=== PATIENT | female | born 1940 | race Caucasian/White ===

== ENCOUNTER 2022-01-04 16:53 | Emergency (ER) | payer MEDICARE, SELFPAY ==
--- NOTE | ~2022-01-04 | CT_ITS ---
Indication: Trauma EXAMINATION: CT chest, CT thoracic spine, CT lumbar sacral spine. Axial imaging with coronal and sagittal reformatted images. Radiation dose is 251 [address] examination was performed using dose optimization techniques as appropriate, variously including the following: *Automated exposure control *Adjustment of mA and/or kV according to patient size (this includes techniques or standardized protocols for targeted exams where dose is matched to indication/reason for exam; i.e. extremities or head) *Use of iterative reconstruction technique. CT chest; The thoracic inlet is felt to be within normal limits. No free fluid in the mediastinum is noted. Coronary calcifications are seen. Partially visualized upper abdominal structures are grossly unremarkable. Centrally there is no bulky mediastinal adenopathy. The hilar regions are not pathologically enlarged. Lung luke. Right lung; There is no pneumothorax or effusion. There is COPD here. 5 mm nodule on image 14. Granuloma calcified on image 27 Reticular change in the lungs may be chronic. 6 mm nodule on image 41 Other calcified granulomas are seen here. Right lung; There is a density in the right upper lung medially. There is some central linear calcification but the majority of this density is soft tissue. This is measuring 2.4 x 1.4 cm. There is a 9 mm nodule left base on image 40. 8 mm nodule centrally on image 32 7 mm nodule on image 20. 7 mm nodule on image 23. Review of the bone windows does not demonstrate an acute fracture. CT of the thoracic spine. Motion limits evaluation at the cervical thoracic junction. No evidence of an acute compression injury. Degenerative changes are noted here. No fracture line is seen. Lumbar sacral spine; Degenerative changes. No acute fracture. CT/CT thoracic spine wo IV con IMPRESSION: This exam is abnormal. There are numerous areas of lung nodularity which are described above. There is underlying COPD. PET/CT is recommended at this time to further evaluate. Underlying malignancy needs to be considered. There is no acute fracture seen in the thoracic or lumbar spine. There is no pneumothorax or effusion in the lungs. No free fluid is seen here.
--- NOTE | ~2022-01-04 | XR_ITS ---
EXAMINATION: XR BILATERAL HIPS WITH AP PELVIS CLINICAL INFORMATION: Bilateral hip pain COMPARISON: None TECHNIQUE: AP view of the pelvis and 2 views of each hip FINDINGS: The pelvic image shows probable degeneration in the lower lumbar sacral spine. The SI joints are grossly patent. Some mild degeneration. Detailed views of the right hip 2 views show the femoral head contour to be smooth. There is some mild axial joint space loss. Mild degenerative change along the greater trochanter. There is no acute fracture or dislocation. Detailed imaging 2 views of the left hip show some axial and inferior joint space loss. The femoral head contour however again remains smooth. No acute finding. Degenerative change along the greater trochanter. Some degeneration at the level the pubis XR/XR hips AMANDA min 3V IMPRESSION: No acute bony finding. Some degenerative changes are noted here. The femoral head contours however remain smooth.
--- NOTE | ~2022-01-04 | CT_ITS ---
EXAMINATION: CT HEAD WITHOUT CONTRAST CT CERVICAL SPINE WITHOUT CONTRAST CLINICAL INFORMATION: Fall. Head strike. COMPARISON: None TECHNIQUE: Contiguous axial imaging was performed from the skull base to vertex without intravenous administration of contrast. Contiguous axial CT images of the cervical spine were obtained without contrast. Sagittal and coronal reformats were provided and reviewed. This CT examination was performed using dose optimization techniques as appropriate, variously including the following: *Automated exposure control. *Adjustment of mA and/or kV according to patient size (this includes techniques or standardized protocols for targeted exams where dose is matched to indication/reason for exam; i.e. extremities or head). *Use of iterative reconstruction technique. DLP: 1044 mGy-cm FINDINGS: HEAD: There is no evidence of acute intracranial hemorrhage or territorial infarction. No abnormal mass effect or midline shift is seen. [id number] matter differentiation is well preserved. No extra-axial fluid collections are identified. Mild prominence of the ventricles and sulci consistent mild atrophy. Multiple chronic lacunar infarcts. Soft tissue swelling overlying the posterior right parieto-occipital calvarium. Intact calvarium. The mastoid air cells and visualized portions of the paranasal sinuses are well aerated. CERVICAL SPINE: Normal vertebral body alignment. The normal cervical lordosis is maintained. No acute fracture or subluxation. No loss of vertebral body height. Mild multilevel loss of intervertebral disc height with endplate osteophytes, most prominent at C4-C5. Mild multilevel bilateral facet arthropathy. No lytic or blastic osseous lesion. Unremarkable prevertebral soft tissues. No abnormal soft tissue mass or fluid collection. Thyroid within normal limits. Post surgical change consistent with lobectomy within the left upper lobe. Emphysematous changes within the visualized lung apices. No significant central canal or neural foraminal stenosis. CT/CT cervical spine wo IV con IMPRESSION: HEAD: No acute intracranial hemorrhage or mass effect. Soft tissue swelling overlying the right parieto-occipital calvarium consistent with hematoma. CERVICAL SPINE: No acute fracture or subluxation. Mild multilevel degenerative disc disease and facet arthropathy, most prominent at C4-C5.
--- NOTE | 2022-01-04 17:03 | ED.FALL ---
HPI - Fall General Chief Complaint: Fall Stated Complaint: mechanical fall Time Seen by Provider: 01/04/22 17:03 Source: patient and EMS Mode of arrival: EMS Limitations: no limitations History of Present Illness HPI Narrative: 81-year-old female presents via EMS for evaluation for a mechanical trip and fall. Patient was trying to step up wild getting her mail, fell backwards and hit her head on the cement. She is complaining of a headache, has a laceration to the occiput, is in his C-collar and is complaining of bilateral hip pain, back pain, and chest wall pain. Patient wears O2 for COPD, and has known lung nodules. Patient does not report prodromal events prior to the fall, denies chest pressure, palpitations, abdominal pain, abdominal distention, changes in vision, dizziness, weakness, nausea or vomiting. MD complaint: fall Onset (ago): hour(s) (Within the hour of arrival) Fall from: standing Fall witnessed: yes, by family Place fall occurred: home Loss of consciousness: none Prolonged down time: no Symptoms prior to fall: none Context: tripped/slipped Location of injury: head, chest, back and pelvis Location of injury - extremities: right: elbow Severity: moderate Severity scale (1-10): 7 Quality: aching Associated symptoms (after fall): headache, neck pain and chest pain Related Data Allergies Allergy/AdvReac Type Severity Reaction Status Date / Time No Known Allergies Allergy Verified 01/04/22 17:06 Review of Systems Review of Systems: Constitutional: No Fever, No Chills ENT/Mouth: No Ear Pain, No Hoarseness, No sore throat Eyes: No Eye Pain, No Swelling, No Redness, No Foreign Body Cardiovascular: No Chest Pain, No SOB Respiratory: No Cough, No Dyspnea Gastrointestinal: No Nausea, No Vomiting, No Diarrhea, No abdominal Pain Genitourinary: No Dysuria, No Hematuria Musculoskeletal: positive chest wall, hip, elbow and back pain, No Myalgias, No Joint Swelling Skin: Positive abrasion to the occiput, No Skin lacerations, No rash Neuro: No Weakness, No Numbness, No Paresthesias, No Loss of Consciousness, No Dizziness, positive Headache Psych: No Anxiety/Panic, No Depression Heme/Lymph: no easy bruising, no Lymphadenopathy Endocrine: No Polyuria, No Polydipsia Yes all other systems are reviewed and are negative [facility] Past Medical History Attestation statement: The following information was validated with the patient. Source: old records reviewed Social History Social History Alcohol intake: never Patient Tobacco Use Status: Never used Tobacco Use of substances other than those prescribed or required for medical reasons: No Advance Directives: No Advance Directives Information Provided: No Physical Exam Vital Signs: Vital Signs: Last Vital Signs Temp 98.4 F 01/04/22 17:11 Pulse 67 01/04/22 17:11 Resp 18 01/04/22 17:11 BP 162/52 H 01/04/22 17:11 Pulse Ox 99 01/04/22 17:11 O2 Del Method 01/04/22 17:11 Oxygen Flow Rate 2 01/04/22 17:11 BMI result Body Mass Index 21.4 Appearance: Alert. Oriented X3. No acute distress. Eyes: Pupils equal, round and reactive to light. EOMI. No pain on extraocular movements. ENT: Pharynx normal. Moist mucous membranes. Tympanic membranes intact. Neck: Normal inspection. Neck supple. No vertebral tenderness or step-offs. No nuchal rigidity. CVS: Normal heart rate and rhythm. Pulses normal. Respiratory: No respiratory distress. Breath sounds normal. Abdomen: Soft and nontender. Skin: Abrasion to the occiput. Skin warm and dry. Normal skin color. Normal skin turgor. Extremities: No lower extremity edema. Tenderness to bilateral hips, no internal or external rotation or shortening of the lower extremities. Chest wall tenderness to palpation greater on the left than the right. Moves all extremities against resistance. Strength 5/5. Gait not assessed for safety. Neuro: No motor deficit. No sensory deficit. Cranial nerves 2-12 intact Course Course Course Narrative: 81-year-old female presents via EMS for evaluation of injury sustained from a fall. Patient has an abrasion to the occiput, does not require yun or further care be sites cleaning with normal saline and hydrogen peroxide. Physical exam indicates chest wall tenderness to palpation, bilateral hip tenderness to palpation without crepitus, full range of motion to all extremities. No vertebral tenderness or step-offs. Will continue with physical exam status post CT scan of head cervical spine, chest, lumbar thoracic and hip x-ray. 19:30 CT scan negative for acute findings requiring emergent intervention. Redemonstrated nodules, no fractures dislocations. X-rays of hip and pelvis are negative. 19:45 patient has full range of motion to all extremities, does have some tenderness to the elbow but there is no swelling, bruising, and has equal grasp to bilateral extremities with 5/5 strength. Brisk capillary refill equal pulses. Full range of motion to the neck. At this time, will have patient follow-up with primary care physician for post concussive protocol. Patient and patient family verbalized understanding of and agrees plan of care discharge home. Verbalized understanding of signs and symptoms indicating need for emergent intervention. MDM - Fall Differential Diagnosis Differential diagnosis: Likely dislocation, fracture, compression fracture and concussion without loss of consciousness Medical Records Attestation: I reviewed the patient's medical records. Imaging Data CT head neck: Attestation: I personally reviewed and interpreted this imaging study as follows: Radiologist's impression: HEAD: There is no evidence of acute intracranial hemorrhage or territorial infarction. No abnormal mass effect or midline shift is seen. Dlnj-[id number]-[id number] matter differentiation is well preserved. No extra-axial fluid collections are identified. Mild prominence of the ventricles and sulci consistent mild atrophy. Multiple chronic lacunar infarcts. Soft tissue swelling overlying the posterior right parieto-occipital calvarium. Intact calvarium. The mastoid air cells and visualized portions of the paranasal sinuses are well aerated. CERVICAL SPINE: Normal vertebral body alignment. The normal cervical lordosis is maintained. No acute fracture or subluxation. No loss of vertebral body height. Mild multilevel loss of intervertebral disc height with endplate osteophytes, most prominent at C4-C5. Mild multilevel bilateral facet arthropathy. No lytic or blastic osseous lesion. Unremarkable prevertebral soft tissues. No abnormal soft tissue mass or fluid collection. Thyroid within normal limits. Post surgical change consistent with lobectomy within the left upper lobe. Emphysematous changes within the visualized lung apices. No significant central canal or neural foraminal stenosis. ? CT/CT cervical spine wo IV con IMPRESSION: HEAD: No acute intracranial hemorrhage or mass effect. Soft tissue swelling overlying the right parieto-occipital calvarium consistent with hematoma. ? CERVICAL SPINE: No acute fracture or subluxation. Mild multilevel degenerative disc disease and facet arthropathy, most prominent at C4-C5. CT chest abdomen pelvis thoracic and lumbar: Attestation: I personally reviewed and interpreted this imaging study as follows: Radiologist's impression: EXAMINATION: CT chest, CT thoracic spine, CT lumbar sacral spine. Axial imaging with coronal and sagittal reformatted images. Radiation dose is 251 [address] examination was performed using dose optimization techniques as appropriate, variously including the following: *Automated exposure control *Adjustment of mA and/or kV according to patient size (this includes techniques or standardized protocols for targeted exams where dose is matched to indication/reason for exam; i.e. extremities or head) *Use of iterative reconstruction technique. CT chest; The thoracic inlet is felt to be within normal limits. No free fluid in the mediastinum is noted. Coronary calcifications are seen. Partially visualized upper abdominal structures are grossly unremarkable. Centrally there is no bulky mediastinal adenopathy. The hilar regions are not pathologically enlarged. Lung luke. Right lung; There is no pneumothorax or effusion. There is COPD here. 5 mm nodule on image 14. Granuloma calcified on image 27 Reticular change in the lungs may be chronic. 6 mm nodule on image 41 Other calcified granulomas are seen here. Right lung; There is a density in the right upper lung medially. There is some central linear calcification but the majority of this density is soft tissue. This is measuring 2.4 x 1.4 cm. There is a 9 mm nodule left base on image 40. 8 mm nodule centrally on image 32 7 mm nodule on image 20. 7 mm nodule on image 23. Review of the bone windows does not demonstrate an acute fracture. CT of the thoracic spine. Motion limits evaluation at the cervical thoracic junction. No evidence of an acute compression injury. Degenerative changes are noted here. No fracture line is seen. Lumbar sacral spine; Degenerative changes. No acute fracture. CT/CT chest wo IV con IMPRESSION: ? This exam is abnormal. There are numerous areas of lung nodularity which are described above. There is underlying COPD. PET/CT is recommended at this time to further evaluate. Underlying malignancy needs to be considered. ? There is no acute fracture seen in the thoracic or lumbar spine. ? There is no pneumothorax or effusion in the lungs. No free fluid is seen here. Hip x-ray: Attestation: I personally reviewed and interpreted this imaging study as follows: Radiologist's impression: EXAMINATION: XR BILATERAL HIPS WITH AP PELVIS CLINICAL INFORMATION: Bilateral hip pain COMPARISON: None TECHNIQUE: AP view of the pelvis and 2 views of each hip FINDINGS: The pelvic image shows probable degeneration in the lower lumbar sacral spine. The SI joints are grossly patent. Some mild degeneration. Detailed views of the right hip 2 views show the femoral head contour to be smooth. There is some mild axial joint space loss. Mild degenerative change along the greater trochanter. There is no acute fracture or dislocation. Detailed imaging 2 views of the left hip show some axial and inferior joint space loss. The femoral head contour however again remains smooth. No acute finding. Degenerative change along the greater trochanter. Some degeneration at the level the pubis XR/XR hips AMANDA min 3V IMPRESSION: No acute bony finding. Some degenerative changes are noted here. The femoral head contours however remain smooth. Discharge Plan Discharge Clinical Impression: Concussion without loss of consciousness, Lung nodules, Laceration of scalp Patient Disposition: Home, Self-Care Instructions: Laceration (ED), Concussion (ED), Post Concussion Syndrome (ED), Staple Care (ED) Additional Instructions: You were evaluated for injury sustained from fall. Please follow-up with primary care physician for post concussive syndrome. We updated her Tdap vaccine for an abrasion to the back of her head. CT scan head, cervical spine, thoracic, lumbar spine, chest, and x-rays of the hip and pelvis are negative for acute findings requiring emergent intervention, it does show some lung nodules that are already being followed by Pulmonary. Thank you for choosing this emergency department for evaluation. Please follow-up with primary care physician as needed. Return to the emergency department for any new, concerning, or worsening symptoms. Referrals: Vance Preston MD [Primary Care Provider] - 1 week (Fall, concussion syndrome) Interventions: ED Discharge Assessment Last Done: 01/04/22 20:22 Discharge Date/Time: 01/04/22 20:24
[2022-01-04 17:11] VITALS: BP 132/58; BP 162/52; PULSE 67; PULSE 70; RESP 18; TEMP 36.9; O2SAT 93; O2SAT 99; BMI 21.4
[2022-01-04] MEDS: Diphth,Pertus(ACell),Tet Adult 0.5 ML SYRINGE IM (18:01)
--- OUTSIDE RECORDS SUMMARY | 2022-01-04 18:22 | XMS_ITS | Continuity of Care Document ---
:1940 Author Organization [facility] Address [address] [address]- Care Team Providers Name Role Phone Kary MCGINNIS, Vance Ny Primary Care Physician Encounter [facility] Date(s): 06/02/21 - 07/02/21 [facility] [address] [address]- Allergies, Adverse Reactions, Alerts Substance Reaction Severity Status thiazide diuretics hypokalemia Active angiotensin converting enzyme inhibitors angioedema Active Celexa rash Active Diltiazem Hydrochloride Novaplus Active Immunizations Given and Recorded Vaccine Date Status Refusal Reason influenza virus vaccine, inactivated 01/25/21 Given influenza virus vaccine, inactivated1 01/26/20 Given influenza virus vaccine, inactivated2 12/24/17 Recorded influenza virus vaccine, inactivated3 01/30/17 Recorded influenza virus vaccine, inactivated 01/07/16 Given influenza virus vaccine, inactivated4 12/24/14 Given influenza virus vaccine, inactivated 02/09/14 Given influenza virus vaccine, inactivated5 11/26/12 Given influenza virus vaccine, inactivated6 04/17/12 Given SARS-CoV-2 (COVID-19) mRNA BNT-162b2 vac 05/25/20 Given SARS-CoV-2 (COVID-19) mRNA BNT-162b2 vac 05/04/20 Given pneumococcal 13-valent vaccine 06/23/14 Given tetanus/diphtheria/pertussis, acel(Tdap) 04/24/13 Given Influenza Virus Vaccine (oldterm)7 12/13/10 Given FluLaval (oldterm) 01/25/10 Given Fluzone (oldterm) 04/02/09 Given Influenza Inactive (IM) (oldterm) 02/02/07 Given Influenza Inactive (IM) (oldterm) 04/13/06 Given Influenza Inactive (IM) (oldterm) 02/27/03 Given Pneumococcal Vaccine (oldterm) 12/21/06 Given tetanus-diphtheria toxoids (Td) 04/16/03 Given tetanus-diphtheria toxoids (Td) 07/26/93 Given 1Result Comment: High Dose Flu Vaccination given by Emma Garza [id number] History: [facility] [id number] Comment: [01/31/2017] stop n [id number] Note: [facility] [id number] Note: given at [facility] [id number] Note: 03-06 [facility] [id number] Note: [facility] Medications hydrOXYzine hydrochloride 25 mg oral tablet 1 tablet = 25 mg, By Mouth, Every 12 hours, PRN as needed for anxiety, # 20 tablet, 0 Refills, Acute07/04/21 8:00:00 EDT, 06/03/21 15:18:00 EST, [facility], Partial fill upon patient request if the prescription is for a schedule II opioi... Start Date: 06/03/21 Stop Date: 07/04/21 Status: Orderedlevothyroxine 0.088 mg oral tablet See Instructions, TAKE 1 TABLET BY MOUTH DAILY., # 30 tablet, 5 Refills, Maintenance, 06/02/21 12:31:00 EST, [facility], 162, cm, 05/23/21 15:21:00 EST, Height Start Date: 06/02/21 Status: Orderedmirtazapine 15 mg oral tablet 1 tablet = 15 mg, By Mouth, Daily at bedtime, # 90 tablet, 1 Refills, Maintenance, 05/23/21 16:07:00EST, Tablet, [facility], D/C RX 7.5, 162, cm, 05/23/21 15:21:00 EST, Height Start Date: 05/23/21 Status: OrderedNorvasc 2.5 mg oral tablet 2.5 mg, 1, tablet, By Mouth, Daily, # 90 tablet, Refills 3, Tot. Refills 3, Maintenance, 12/07/20 11:19:00 EDT, Route to Pharmacy Electronically, [facility], 162, cm, 11/04/20 14:18:00EDT, Height Start Date: 12/07/20 Status: OrderedO2 Rx O2 Rx, See Instructions, # 1 each, Refills 11, Tot. Refills 11, Maintenance, 2lpm continuous oxygen concentrator for nocturnal 02 SP02 88% length of need lifetime 99 months Dx, 06/04/20 9:05:00 EST, Supply Start Date: 06/04/20 Status: OrderedOvernight oximetry Overnight oximetry, See Instructions, # 1 each, Refills 0, Tot. Refills 0, Maintenance, Overnight Oximetry on room air dx COPD J44.9, 02/17/20 13:55:00 EST, Supply, 162, cm, 02/09/20 16:08:00 EST, Height Start Date: 02/17/20 Status: OrderedProAir HFA 90 mcg/inh inhalation aerosol with adapter 1, puffs, Inhalation, Every 6 hours, PRN, # 3 each, Refills 3, Tot. Refills 3, Maintenance, 10/08/2110:51:00 EDT, Aerosol, Route to Pharmacy Electronically, [id number], [facility], 162, cm, 02/09/20 16:08:00 EST... Start Date: 10/08/20 Stop Date: 10/03/21 Status: OrderedSpiriva HandiHaler 18 mcg inhalation capsule 1 capsule = 18 mcg, Inhalation, Daily, # 30 capsule, 2 Refills, Maintenance, 03/02/21 16:23:00 EST, [facility], Partial fill upon patient request, 162, cm, 11/04/20 14:18:00 EDT, Height Start Date: 03/02/21 Status: Orderedspironolactone 25 mg oral tablet 1, tablet, By Mouth, Daily, # 90 tablet, Refills 3, Tot. Refills 0, Maintenance, 10/08/20 16:11:00 EDT, Route to Pharmacy Electronically, [facility], 162, cm, 02/09/20 16:08:00 EST, Height Start Date: 10/08/20 Status: OrderedWixela Inhub 500 mcg-50 mcg inhalation powder 1 inhalation, Inhalation, 2 times a day, rinse mouth and throat after use, # 3 each, 3 Refills, Maintenance, 06/02/21 12:57:00 EST, Powder, [facility], Partial fill upon patient request if the prescription is for a schedule II opioid drug... 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) History of diverticulitis(Confirmed) Active History of basal cell carcinoma of Active skin(Confirmed) Hormone replacement therapy Active (HRT)(Confirmed) Hypertension(Confirmed) Active Hypothyroidism(Confirmed) Active Idiopathic peripheral Active neuropathy(Confirmed)1 Impaired fasting glucose(Confirmed) Active 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 Social History Social History Type Response Smoking Status Current every day smoker entered on: 09/14/17 Sex Female
--- OUTSIDE RECORDS SUMMARY | 2022-01-04 18:22 | XMS_ITS | Continuity of Care Document ---
:1940 Author Organization [facility] Address [address] [place] [address]- Care Team Providers Name Role Phone Kary MCGINNIS, Vance Ny Primary Care Physician Encounter [facility] Date(s): 08/29/21 - 09/28/21 [facility] [address] [place] [address]- Allergies, Adverse Reactions, Alerts Substance Reaction Severity Status thiazide diuretics hypokalemia Active angiotensin converting enzyme inhibitors angioedema Active Celexa rash Active Diltiazem Hydrochloride Novaplus Active Immunizations Given and Recorded Vaccine Date Status Refusal Reason SARS-CoV-2 mRNA ([id number]) vax 07/06/21 Recorde d influenza virus vaccine, inactivated 01/25/21 Given influenza virus vaccine, inactivated1 01/26/20 Given influenza virus vaccine, inactivated 01/30/18 Recorded influenza virus vaccine, inactivated2 12/24/17 Recorded influenza virus vaccine, inactivated3 01/30/17 Recorded influenza virus vaccine, inactivated 01/07/16 Given influenza virus vaccine, inactivated4 12/24/14 Given influenza virus vaccine, inactivated 02/09/14 Given influenza virus vaccine, inactivated5 11/26/12 Given influenza virus vaccine, inactivated6 04/17/12 Given SARS-CoV-2 (COVID-19) mRNA BNT-162b2 vac 12/17/20 Recorde d SARS-CoV-2 (COVID-19) mRNA BNT-162b2 vac 05/25/20 Given [...] Dose Flu Vaccination given by Emma Garza [id number] History: [facility] [id number] Comment: [01/31/2017] stop n [id number] Note: [facility] [id number] Note: given at [facility] [id number] Note: 12- [facility] [id number] Note: [facility] at [facility] Medications famotidine 20 mg oral tablet 20 mg, 1, tablet, By Mouth, Daily at bedtime, # 90 tablet, Refills 1, Tot. Refills 1, Maintenance, 09/16/21 13:17:00 EDT, Route to Pharmacy Electronically, [facility], Partial fill upon patient request if the prescription is for a schedul... Start Date: 09/16/21 Status: Orderedlevothyroxine 75 mcg (0.075 mg) oral tablet 1 tablet = 75 mcg, By Mouth, Daily, DOSAGE DECREASE, # 30 tablet, 6 Refills, Maintenance, 08/09/21 11:44:00 EDT, Tablet, [facility], Partial fill upon patient request if the prescription is for a schedule II opioid drug., 162, cm, ... Start Date: 08/09/21 Status: Orderedmirtazapine 15 mg oral tablet 1 tablet = 15 mg, By Mouth, Daily at bedtime, # 90 tablet, 1 Refills, Maintenance, 05/23/21 16:07:00EST, Tablet, [facility], D/C RX 7.5, 162, cm, 05/23/21 15:21:00 EST, Height Start Date: 05/23/21 Status: OrderedO2 Rx O2 Rx, See Instructions, [...] 1, puffs, Inhalation, Every 6 hours, PRN, for 90 days, # 3 each, Refills 3, Tot. Refills 3, Hard Stop 10/03/21 11:51:00 EDT, 10/08/20 11:51:00 EDT, Aerosol, Route to Pharmacy Electronically, [id number], [facility]... Start Date: 10/08/20 Stop Date: 10/03/21 Status: OrderedProAir HFA 90 mcg/inh inhalation aerosol with adapter 1, puffs, Inhalation, Every 6 hours, PRN, # 6.7 Gm, Refills 11, Tot. Refills 11, Maintenance, 10/03/21 11:51:00 EDT, Aerosol, Route to Pharmacy Electronically, [id number], [facility], 162, cm, 08/19/21 8:00:00 ED... 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 Social History Social History Type Response Smoking Status Current every day smoker entered on: 09/14/17 Sex Female
--- OUTSIDE RECORDS SUMMARY | 2022-01-04 18:22 | XMS_ITS | Continuity of Care Document ---
:1940 Author Organization [facility] Address [address] [place] [address]- Care Team Providers Name Role Phone Umberto MCGINNIS, Sam Sam Primary Care Physician [facility]counter [facility] Date(s): 02/09/20 - 03/10/20 [facility] [address] [place] [address]- Attending Physician: Adenike Barber Admitting Physician: Adenike Barber Referring Physician: AdmtrAdenike Allergies, Adverse Reactions, Alerts Substance Reaction Severity Status thiazide diuretics hypokalemia Active angiotensin converting enzyme inhibitors angioedema Active Diltiazem Hydrochloride Novaplus Active Celexa rash Active Immunizations Given and Recorded Vaccine Date Status Refusal Reason influenza virus vaccine, inactivated1 01/26/20 Given influenza virus vaccine, inactivated2 12/24/17 Recorded influenza virus vaccine, inactivated3 01/30/17 Recorded influenza virus vaccine, inactivated 01/07/16 Given influenza virus vaccine, inactivated4 12/24/14 Given influenza virus vaccine, inactivated 02/09/14 Given influenza virus vaccine, inactivated5 11/26/12 Given influenza virus vaccine, inactivated6 04/17/12 Given pneumococcal 13-valent vaccine 06/23/14 Given tetanus/diphtheria/pertussis, [...] Dose Flu Vaccination given by Emma Garza [id number] History: stop and [id number] Comment: [01/31/2017] stop n ehza6Uidkx Note: Stop and Gfwt8Fbovi Note: given at stop and fmkv4Cbypt Note: 03-06 [facility] [id number] Note: given at [facility] and [facility] Medications Advair Diskus 500 mcg-50 mcg inhalation powder 1, puffs, Inhalation, 2 times a day, rinse mouth and throat after use NAME BRAND MEDICALLY NECESSARYNO SUBSTITUTION, # 3 each, Refills 1, Tot. Refills 1, Maintenance, 09/02/20 11:41:00 EDT, Powder, Route to Pharmacy Electronically, [id number]... Start Date: 09/02/20 Stop Date: 03/01/21 Status: OrderedAdvair Diskus 500 mcg-50 mcg inhalation powder 1, puffs, Inhalation, 2 times a day, rinse mouth and throat after use NAME BRAND MEDICALLY NECESSARYNO SUBSTITUTION for 90 days, # 3 each, Refills 1, Tot. Refills 1, Hard Stop 09/02/20 11:41:00 EDT, 03/06/20 11:41:00 EST, Powder, Route to Pharmacy E... Start Date: 03/06/20 Stop Date: 09/02/20 Status: Orderedmirtazapine 15 mg oral tablet 1 tablet = 15 mg, By Mouth, Daily at bedtime, # 90 tablet, 3 Refills, Maintenance, 09/08/19 17:14:00EDT, Tablet, [facility], D/C RX 7.5, 162, cm, 04/01/19 10:25:00 EST, Height Start Date: 09/08/19 Status: OrderedOvernight oximetry Overnight oximetry, See Instructions, [...] Refills 3, Tot. Refills 3, Hard Stop 10/08/20 11:51:00 EDT, 10/14/19 11:51:00 EDT, Aerosol, Route to Pharmacy Electronically, [id number], [facility]... Start Date: 10/14/19 Stop Date: 10/08/20 Status: OrderedProAir HFA 90 mcg/inh inhalation aerosol with adapter 1, puffs, Inhalation, Every 6 hours, PRN, # 3 each, Refills 3, Tot. Refills 3, Maintenance, 10/08/2110:51:00 EDT, Aerosol, Route to Pharmacy Electronically, [id number], [facility], 162, cm, 02/09/20 16:08:00 EST... Start Date: 10/08/20 Stop Date: 10/03/21 Status: OrderedSpiriva HandiHaler 18 mcg inhalation capsule 1 capsule = 18 mcg, Inhalation, Daily, # 30 capsule, 11 Refills, Maintenance, 02/09/20 16:51:00 EST,[facility], Partial fill upon patient request, 162, cm, 02/09/20 16:08:00 EST, Height Start Date: 02/09/20 Status: Orderedspironolactone 25 mg oral tablet 25 mg, 1, tablet, By Mouth, Daily, # 90 tablet, Refills 3, Tot. Refills 3, Maintenance, 09/08/19 10:26:00 EDT, Route to Pharmacy Electronically, [facility], 162, cm, 04/01/19 10:25:00 EST, Height Start Date: 09/08/19 Status: OrderedSynthroid 0.088 mg oral tablet 1 tablet = 0.088 mg, By Mouth, Daily, # 90 tablet, 3 Refills, Maintenance, 09/08/19 10:26:00 EDT, Tablet, [facility], 162, cm, 04/01/19 10:25:00 EST, Height Start Date: 09/08/19 Status: Ordered Problem List Condition Effective Dates Status Health Status Informant Acute gastritis(Confirmed) Active Acute UTI(Confirmed) Active Adjustment reaction with anxiety and Active depression(Confirmed) Chronic insomnia(Confirmed) Active Chronic obstructive pulmonary disease Active (COPD)(Confirmed) Cigarette smoker(Confirmed) Active 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) History of diverticulitis(Confirmed) Active History of basal cell carcinoma of Active skin(Confirmed) Hormone replacement therapy Active (HRT)(Confirmed) Hypertension(Confirmed) Active Hypothyroidism(Confirmed) Active Idiopathic peripheral Active neuropathy(Confirmed)1 Impaired fasting glucose(Confirmed) Active 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 Social History Social History Type Response Smoking Status Current every day smoker entered on: 09/14/17 Sex Female
--- OUTSIDE RECORDS SUMMARY | 2022-01-04 18:22 | XMS_ITS | Continuity of Care Document ---
:1940 Author Organization [facility] Address [address] [place] [address]- Care Team Providers Name Role Phone Sam Shipman MD Primary Care Physician Encounter [facility] [place] Date(s): 06/06/19 - 06/16/19 [facility] [address] [place] [address]- [facility] Attending Physician: Adenike Barber Admitting Physician: Adenike Barber Referring Physician: Adenike Barber Allergies, Adverse Reactions, Alerts Substance Reaction Severity Status thiazide diuretics hypokalemia Active angiotensin converting enzyme inhibitors angioedema Active Celexa rash Active Diltiazem Hydrochloride Novaplus Active Immunizations Given and Recorded Vaccine Date Status Refusal Reason influenza virus vaccine, inactivated1 12/24/17 Recorded influenza virus vaccine, inactivated2 01/30/17 Recorded influenza virus vaccine, inactivated 01/07/16 Given influenza virus vaccine, inactivated3 12/24/14 Given influenza virus vaccine, inactivated 02/09/14 Given influenza virus vaccine, inactivated4 11/26/12 Given influenza virus vaccine, inactivated5 04/17/12 Given pneumococcal 13-valent vaccine 06/23/14 Given tetanus/diphtheria/pertussis, acel(Tdap) 04/24/13 Given Influenza Virus Vaccine (oldterm)6 12/13/10 Given FluLaval (oldterm) 01/25/10 Given Fluzone (oldterm) 04/02/09 Given Influenza Inactive (IM) (oldterm) 02/02/07 Given Influenza Inactive (IM) (oldterm) 04/13/06 Given Influenza Inactive (IM) (oldterm) 02/27/03 Given Pneumococcal Vaccine (oldterm) 12/21/06 Given tetanus-diphtheria toxoids (Td) 04/16/03 Given tetanus-diphtheria toxoids (Td) 07/26/93 Given 1Location History: stop and nckh1Ljetss Comment: [01/31/2017] stop n [id number] Note: Stop and Ieaj0Xgrbs Note: given at stop and mppp5Ihygp Note: - [facility] [id number] Note: given at [facility] and shop Medications Advair Diskus 500 mcg-50 mcg inhalation powder 1, puffs, Inhalation, 2 times a day, rinse mouth and throat after use NAME BRAND MEDICALLY NECESSARYNO SUBSTITUTION for 90 days, # 180 each, Refills 3, Tot. Refills 3, Hard Stop 09/08/19 11:41:31 EDT,09/13/18 11:41:31 EDT, Powder, Route to Pharmacy... Start Date: 09/13/18 Stop Date: 09/08/19 Status: OrderedAdvair Diskus 500 mcg-50 mcg inhalation powder 1, puffs, Inhalation, 2 times a day, rinse mouth and throat after use NAME BRAND MEDICALLY NECESSARYNO SUBSTITUTION, # 3 each, Refills 1, Tot. Refills 1, Maintenance, 09/08/19 11:41:00 EDT, Powder, Route to Pharmacy Electronically, [id number]... Start Date: 09/08/19 Stop Date: 03/06/20 Status: OrderedNorvasc 2.5 mg oral tablet 2.5 mg, 1, tablet, By Mouth, Daily, # 90 tablet, Refills 3, Tot. Refills 3, Maintenance, 12/18/18 11:02:55 EDT, Route to Pharmacy Electronically, [id number], [facility] Start Date: 12/18/18 Status: OrderedProAir HFA 90 mcg/inh inhalation aerosol with adapter 1, puffs, Inhalation, Every 6 hours, PRN, # 3 each, Refills 3, Tot. Refills 3, Maintenance, 09/18/1816:50:27 EDT, Aerosol, Route to Pharmacy Electronically, [id number], [facility] Start Date: 09/18/17 Stop Date: 09/13/18 Status: Orderedspironolactone 25 mg oral tablet 25 mg, 1, tablet, By Mouth, Daily, # 90 tablet, Refills 3, Tot. Refills 3, Maintenance, 08/15/18 13:52:58 EDT, Route to Pharmacy Electronically, [id number], [facility] Start Date: 08/15/18 Status: OrderedSynthroid 0.088 mg oral tablet 1 tablet = 0.088 mg, By Mouth, Daily, # 90 tablet, 3 Refills, Maintenance, 08/07/18 7:20:51 EDT, Tablet Start Date: 08/07/18 Status: Ordered Problem List Condition Effective Dates Status Health Status Informant Acute gastritis(Confirmed) Active Acute UTI(Confirmed) Active Adjustment reaction with anxiety and Active depression(Confirmed) Chronic obstructive pulmonary disease Active (COPD)(Confirmed) Cigarette [...] drinks/day(Confirmed) Daily alcohol consumption(Confirmed) Active 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 Social History Social History Type Response Smoking Status Current every day smoker entered on: 09/14/17 Sex Female
--- OUTSIDE RECORDS SUMMARY | 2022-01-04 18:22 | XMS_ITS | Continuity of Care Document ---
:1940 Author Organization [facility] Address [address] [place] [address]- Care Team Providers Name Role Phone Kary MCGINNIS, Vance Ny Primary Care Physician [facility]counter [facility] Date(s): 06/01/21 - 07/01/21 [facility] [address] [place] [address]- Allergies, Adverse Reactions, Alerts Substance Reaction Severity [...] Dose Flu Vaccination given by Emma Garza [id number] History: stop and cpay6Zsldkd Comment: [01/31/2017] stop n [id number] Note: Stop and Tkym2Zvfcv Note: given at stop and yjrl7Hpujg Note: 03-06 [facility] [id number] Note: given at [facility] and shop Medications [...] 10/08/2110:51:00 EDT, Aerosol, Route to Pharmacy Electronically, [id number], [facility], 162, cm, 02/09/20 16:08:00 EST... 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 Social History Social History Type Response Smoking Status Current every day smoker entered on: 09/14/17 Sex Female
--- OUTSIDE RECORDS SUMMARY | 2022-01-04 18:22 | XMS_ITS | Continuity of Care Document ---
:[address] [facility] Address [address] [place] [address]- Care Team Providers Name Role Phone Kary MCGINNIS, Vance Ny Primary Care Physician [facility] Date(s): 05/23/21 - 05/30/21 [facility] [address] [place] [address]- Attending Physician: Not on Staff, Attending MD Allergies, Adverse Reactions, Alerts Substance Reaction Severity [...] Dose Flu Vaccination given by Emma Garza [id number] History: stop and oycu9Tuqilj Comment: [01/31/2017] stop n roqj6Oinhg Note: Stop and Cuuy8Olcyn Note: given at stop and owfy0Kigqw Note: 03-06 [facility] [id number] Note: given at stop and shop Medications Advair Diskus 500 mcg-50 mcg inhalation powder 1, puffs, Inhalation, 2 times a day, rinse mouth and throat after use NAME BRAND MEDICALLY NECESSARYNO SUBSTITUTION for 90 days, # 3 each, Refills 1, Tot. Refills 1, Hard Stop 08/28/21 11:41:00 EDT, 03/01/21 11:41:00 EST, Powder, Route to Pharmacy E... Start Date: 03/01/21 Stop Date: 08/28/21 Status: Orderedmirtazapine 15 mg oral tablet 1 [...] 10/08/2110:51:00 EDT, Aerosol, Route to Pharmacy Electronically, [id number], [facility], 162, cm, 02/09/20 16:08:00 EST... Start Date: 10/08/20 Stop Date: 10/03/21 Status: OrderedSpiriva HandiHaler 18 mcg inhalation capsule 1 capsule = 18 mcg, Inhalation, Daily, # 30 capsule, 2 Refills, Maintenance, 03/02/21 16:23:00 EST, [facility], Partial fill upon patient request, 162, cm, 11/04/20 14:18:00 EDT, Height Start Date: 03/02/21 Status: Orderedspironolactone 25 mg oral tablet 1, tablet, By Mouth, Daily, # 90 tablet, Refills 3, Tot. 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 Vital Signs Most recent to oldest [Reference Range]: 1 Height 162 cm (05/23/21 3:21 PM) Weight 56.8 kg (05/23/21 3:21 PM) Body Mass Index [18.5-24.99] 21.64 (05/23/21 3:21 PM) Weight Obtained Via Patient/family stated (05/23/21 3:21 PM) Social History Social History Type Response Smoking Status Current every day smoker entered on: 09/14/17 Sex Female
--- OUTSIDE RECORDS SUMMARY | 2022-01-04 18:22 | XMS_ITS | Continuity of Care Document ---
:1940 Author Organization [facility] Address [address] [place] [address]- Care Team Providers Name Role Phone Umberto MCGINNIS, Sam Sam Primary Care Physician [facility] Date(s): 06/04/20 - 07/04/20 [facility] [address] [address]- Attending Physician: Adenike Barber Admitting Physician: Adenike Barber Referring Physician: AdmtrAdenike Allergies, Adverse Reactions, Alerts Substance Reaction Severity Status thiazide diuretics hypokalemia Active angiotensin converting enzyme inhibitors angioedema Active Celexa rash Active Diltiazem Hydrochloride Novaplus Active Immunizations Given and Recorded Vaccine Date Status Refusal Reason SARS-CoV-2 (COVID-19) mRNA BNT-162b2 vac 05/25/20 Given SARS-CoV-2 (COVID-19) mRNA BNT-162b2 vac 05/04/20 Given influenza virus vaccine, inactivated1 01/26/20 Given [...] Given FluLaval (oldterm) 01/25/10 Given Fluzone (oldterm) 1/8/10 Given Influenza Inactive (IM) (oldterm) 02/02/07 Given Influenza Inactive (IM) (oldterm) 04/13/06 Given Influenza Inactive (IM) (oldterm) 02/27/03 Given Pneumococcal Vaccine (oldterm) 12/21/06 Given tetanus-diphtheria toxoids (Td) 04/16/03 Given tetanus-diphtheria toxoids (Td) 07/26/93 Given 1Result Comment: High Dose Flu Vaccination given by Emma Garza [id number] History: stop and xfvl4Yemvjh Comment: [01/31/2017] stop n nfwd2Ptrwk Note: Stop and Hvtu0Mavwy Note: given at stop and miqt3Mzlkg Note: 03-[facility] VEWWPVR6Fqukl Note: given at stop and shop Medications Advair Diskus 500 mcg-50 mcg inhalation powder 1, puffs, Inhalation, 2 times a day, rinse mouth and throat after use NAME BRAND MEDICALLY NECESSARYNO SUBSTITUTION, # 3 each, Refills 1, Tot. Refills 1, Maintenance, 09/02/20 11:41:00 EDT, Powder, Route to Pharmacy Electronically, [id number]... Start Date: 09/02/20 Stop Date: 03/01/21 Status: [...] 10:25:00 EST, Height Start Date: 09/08/19 Status: OrderedO2 Rx O2 Rx, See Instructions, [...] 11:51:00 EDT, Aerosol, Route to Pharmacy Electronically, [id number], [facility]... Start Date: 10/14/19 Stop Date: 10/08/20 Status: OrderedProAir HFA 90 mcg/inh inhalation aerosol with adapter 1, puffs, Inhalation, Every 6 hours, PRN, # 3 each, Refills 3, Tot. 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 Social History Social History Type Response Smoking Status Current every day smoker entered on: 09/14/17 Sex Female
--- OUTSIDE RECORDS SUMMARY | 2022-01-04 18:22 | XMS_ITS | Continuity of Care Document ---
:1940 Author Organization [facility] Address [address] [place] [address]- Care Team Providers Name Role Phone Sam Shipman MD Primary Care Physician [facility]counter [facility] Date(s): 05/14/20 - 05/21/[address] [address]- Attending Physician: Anita Bhatti Admitting Physician: Anita Bhatti Referring Physician: Sam Shipman MD Allergies, Adverse Reactions, Alerts Substance Reaction Severity Status thiazide diuretics hypokalemia Active angiotensin converting enzyme inhibitors angioedema Active Celexa rash Active Diltiazem Hydrochloride Novaplus Active Immunizations Given and Recorded Vaccine Date Status Refusal Reason SARS-CoV-2 (COVID-19) mRNA BNT-162b2 vac 05/04/20 Given [...] Dose Flu Vaccination given by Emma Garza [id number] History: stop and rvlu4Pyblbh Comment: [01/31/2017] stop n ksul6Rnmuv Note: Stop and Fbzt7Pmxff Note: given at stop and kzgx8Kblxl Note: 03-06 [facility] [id number] Note: given at stop and shop Medications Advair Diskus 500 mcg-50 mcg inhalation powder 1, puffs, Inhalation, 2 times a day, rinse mouth and throat after use NAME BRAND MEDICALLY NECESSARYNO SUBSTITUTION, # 3 each, Refills 1, Tot. Refills 1, Maintenance, 09/02/20 11:41:00 EDT, Powder, Route to Pharmacy Electronically, [id number]... Start Date: 09/02/20 Stop Date: 03/01/21 Status: [...] 11:51:00 EDT, Aerosol, Route to Pharmacy Electronically, [id number], [facility]... Start Date: 10/14/19 Stop Date: 10/08/20 Status: OrderedProAir HFA 90 mcg/inh inhalation aerosol with adapter 1, puffs, Inhalation, Every 6 hours, PRN, # 3 each, Refills 3, Tot. 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 Social History Social History Type Response Smoking Status Current every day smoker entered on: 09/14/17 Sex Female
--- OUTSIDE RECORDS SUMMARY | 2022-01-04 18:22 | XMS_ITS | Continuity of Care Document ---
:1940 Author Organization [facility] Address [address] [address]- Care Team Providers Name Role Phone Umberto MCGINNIS, Sam Sam Primary Care Physician [facility] Date(s): 09/13/20 - 10/13/20 [facility] [address] [address]- Allergies, Adverse Reactions, Alerts Substance Reaction Severity [...] Dose Flu Vaccination given by Emma Garza [id number] History: stop and rkuy4Hhpxni Comment: [01/31/2017] stop n qdrw8Gwyfh Note: Stop and Gsha1Hhhrp Note: given at stop and wqbw4Wqija Note: 03-06 [facility] [id number] Note: given at stop and shop Medications Advair Diskus 500 mcg-50 mcg inhalation powder 1, puffs, Inhalation, 2 times a day, rinse mouth and throat after use NAME BRAND MEDICALLY NECESSARYNO SUBSTITUTION for 90 days, # 3 each, Refills 1, Tot. Refills 1, Hard Stop 03/01/21 11:41:00 EST, 09/02/20 11:41:00 EDT, Powder, Route to Pharmacy E... Start Date: 09/02/20 Stop Date: 03/01/21 Status: OrderedAdvair Diskus 500 mcg-50 mcg inhalation powder 1, puffs, Inhalation, 2 times a day, rinse mouth and throat after use NAME BRAND MEDICALLY NECESSARYNO SUBSTITUTION, # 3 each, Refills 1, Tot. Refills 1, Maintenance, 03/01/21 11:41:00 EST, Powder, Route to Pharmacy Electronically, [id number]... Start Date: 03/01/21 Stop Date: 08/28/21 Status: [...] 10/08/2110:51:00 EDT, Aerosol, Route to Pharmacy Electronically, [id number], [facility], 162, cm, 02/09/20 16:08:00 EST... Start Date: 10/08/20 Stop Date: 10/03/21 Status: OrderedSpiriva HandiHaler 18 mcg inhalation capsule 1 capsule = 18 mcg, Inhalation, Daily, # 30 capsule, 11 Refills, Maintenance, 02/09/20 16:51:00 EST,[facility], Partial fill upon patient request, 162, cm, 02/09/20 16:08:00 EST, Height Start Date: 02/09/20 Status: Orderedspironolactone 25 mg oral tablet 1, tablet, By Mouth, Daily, # 90 tablet, Refills 3, Tot. Refills 0, Maintenance, 10/08/20 16:11:00 EDT, Route to Pharmacy Electronically, [email or web address], 162, cm, 02/09/20 16:08:00 EST, Height Start Date: 10/08/20 Status: OrderedSynthroid 0.088 mg oral tablet 1 tablet = 0.088 mg, By Mouth, Daily, # 90 tablet, 3 Refills, Maintenance, 09/08/19 10:26:00 EDT, Tablet, [facility], 162, cm, 04/01/19 10:25:00 EST, [...] drinks/day(Confirmed) Daily alcohol consumption(Confirmed) Active Old inferior [place] [...]
--- OUTSIDE RECORDS SUMMARY | 2022-01-04 18:22 | XMS_ITS | Continuity of Care Document ---
:1940 Author Organization [facility] Address [address] [place] [address]- Care Team Providers Name Role Phone Kary MCGINNIS, Vance Ny Primary Care Physician Encounter [facility] [place] Date(s): 05/13/21 - 06/12/21 [facility] [address] [address]- Attending Physician: Adenike Barber Admitting Physician: Adenike [...] Dose Flu Vaccination given by Emma Garza [id number] History: stop and aqwn3Xfltcx Comment: [01/31/2017] stop n grzl8Tvuvq Note: Stop and Zask8Uwmwj Note: given at stop and moen4Iyikd Note: 03-06 [facility] UGZETQI2Sdefn Note: given at stop and shop Medications [...] 12/07/20 11:19:00 EDT, Route to Pharmacy Electronically, [email or web address], 162, cm, 11/04/20 14:18:00EDT, Height [...] 10/08/2110:51:00 EDT, Aerosol, Route to Pharmacy Electronically, [id number], [facility], 162, cm, 02/09/20 16:08:00 EST... Start Date: 10/08/20 Stop Date: 10/03/21 Status: OrderedSpiriva HandiHaler 18 mcg inhalation capsule 1 capsule = 18 mcg, Inhalation, Daily, # 30 capsule, 2 Refills, Maintenance, 03/02/21 16:23:00 EST, [email or web address], Partial fill upon patient request, 162, cm, 11/04/20 14:18:00 EDT, Height Start Date: 03/02/21 Status: Orderedspironolactone 25 mg oral tablet 1, tablet, By Mouth, Daily, # 90 tablet, Refills 3, Tot. 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 Social History Social History Type Response Smoking Status Current every day smoker entered on: 09/14/17 Sex Female
--- OUTSIDE RECORDS SUMMARY | 2022-01-04 18:22 | XMS_ITS | Continuity of Care Document ---
:1940 Author Organization [facility] Address [address] [place] [address]- Care Team Providers Name Role Phone Umberto MCGINNIS, Sam Sam Primary Care Physician Encounter [facility] Date(s): 01/25/21 - 02/01/21 [facility] [address] [place] [address]- Attending Physician: Vance Preston MD Allergies, Adverse Reactions, Alerts Substance Reaction [...] Dose Flu Vaccination given by Emma Garza [id number] History: stop and ixmd6Gldfjm Comment: [01/31/2017] stop n idyy1Gtsls Note: Stop and Zbec4Ecqvo Note: given at stop and cyew8Xbonn Note: 03-06 [facility] ASWAVWC4Dxbpu Note: given at stop and shop Medications [...] 11:41:00 EST, Powder, Route to Pharmacy Electronically, [id number]... Start Date: 03/01/21 Stop Date: 08/28/21 Status: Orderedmirtazapine 15 mg oral tablet 1 tablet = 15 mg, By Mouth, Daily at bedtime, # 90 tablet, 3 Refills, Maintenance, 09/08/19 17:14:00EDT, Tablet, [facility], D/C RX 7.5, 162, cm, 04/01/19 10:25:00 EST, Height Start Date: 09/08/19 Status: OrderedNorvasc 2.5 mg oral tablet 2.5 mg, 1, tablet, By Mouth, Daily, # 90 tablet, Refills 3, Tot. Refills 3, Maintenance, 12/07/20 11:19:00 EDT, Route to Pharmacy Electronically, [facility], 162, cm, 11/04/20 14:18:00EDT, Height [...] 10/08/2110:51:00 EDT, Aerosol, Route to Pharmacy Electronically, [id number], [facility], 162, cm, 02/09/20 16:08:00 EST... 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 Social History Social History Type Response Smoking Status Current every day smoker entered on: 09/14/17 Sex Female
--- OUTSIDE RECORDS SUMMARY | 2022-01-04 18:22 | XMS_ITS | Continuity of Care Document ---
:1940 Author Organization [facility] Address [address] [address]- Care Team Providers Name Role Phone Umberto MCGINNIS, Sam Sam Primary Care Physician Encounter [facility] Date(s): 02/12/20 - 03/13/20 [facility] [address] [place] [id number] Allergies, Adverse Reactions, Alerts Substance Reaction Severity [...] Dose Flu Vaccination given by Emma Garza [id number] History: stop and qaeg2Xhqtmk Comment: [01/31/2017] stop n ahyv8Gzjuw Note: Stop and Pyof8Txqag Note: given at stop and wscs6Smhdk Note: 12- [facility] ONIRPPE2Lkewc Note: given at stop and shop Medications Advair Diskus 500 mcg-50 mcg inhalation powder 1, puffs, Inhalation, 2 times a day, rinse mouth and throat after use NAME BRAND MEDICALLY NECESSARYNO SUBSTITUTION, # 3 each, Refills 1, Tot. Refills 1, Maintenance, 09/02/20 11:41:00 EDT, Powder, Route to Pharmacy Electronically, [id number]... Start Date: 09/02/20 Stop Date: 03/01/21 Status: [...] 11:51:00 EDT, Aerosol, Route to Pharmacy Electronically, [id number], [facility]... Start Date: 10/14/19 Stop Date: 10/08/20 Status: OrderedProAir HFA 90 mcg/inh inhalation aerosol with adapter 1, puffs, Inhalation, Every 6 hours, PRN, # 3 each, Refills 3, Tot. Refills 3, Maintenance, 10/08/2110:51:00 EDT, Aerosol, Route to Pharmacy Electronically, [id number], [facility], 162, cm, 02/09/20 16:08:00 EST... Start Date: 10/08/20 Stop Date: 10/03/21 Status: OrderedSpiriva HandiHaler 18 mcg inhalation capsule 1 capsule = 18 mcg, Inhalation, Daily, # 30 capsule, 11 Refills, Maintenance, 02/09/20 16:51:00 EST,[facility], Partial fill upon patient request, 162, cm, 02/09/20 16:08:00 EST, Height Start Date: 02/09/20 Status: Orderedspironolactone 25 mg oral tablet 25 mg, 1, tablet, By Mouth, Daily, # 90 tablet, Refills 3, Tot. 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 Social History Social History Type Response Smoking Status Current every day smoker entered on: 09/14/17 Sex Female
--- OUTSIDE RECORDS SUMMARY | 2022-01-04 18:22 | XMS_ITS | Continuity of Care Document ---
:1940 Author Organization [facility] Address [address] [place] [address]- Care Team Providers Name Role Phone Umberto MCGINNIS, Sam Sam Primary Care Physician Encounter [facility] Date(s): 01/24/21 - 02/23/[address] [address]- [place] Allergies, Adverse Reactions, Alerts Substance Reaction Severity [...] Dose Flu Vaccination given by Emma Garza [id number] History: stop and alkh4Iuoqjs Comment: [01/31/2017] stop n sopu4Kvlia Note: Stop and Ejvt2Voldr Note: given at stop and rilm3Bfonr Note: 03-06 [facility] CECYUWR7Zlthv Note: given at stop and shop Medications [...] 11:41:00 EST, Powder, Route to Pharmacy Electronically, [id number]... Start Date: 03/01/21 Stop Date: 08/28/21 Status: [...] 12/07/20 11:19:00 EDT, Route to Pharmacy Electronically, [facility], 162, cm, 11/04/20 14:18:00EDT, Height [...] 10/08/2110:51:00 EDT, Aerosol, Route to Pharmacy Electronically, [id number], [facility], 162, cm, 02/09/20 16:08:00 EST... 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 Social History Social History Type Response Smoking Status Current every day smoker entered on: 09/14/17 Sex Female
--- OUTSIDE RECORDS SUMMARY | 2022-01-04 18:23 | XMS_ITS | Continuity of Care Document ---
:1940 Author Organization [facility] Address [address] [place] [address]- Care Team Providers Name Role Phone Sam Shipman MD Primary Care Physician Encounter [facility] Date(s): 03/11/21 - 04/10/21 [facility] [address] [place] [address]- Allergies, Adverse Reactions, Alerts Substance Reaction Severity [...] Dose Flu Vaccination given by Emma Garza [id number] History: stop and vpdn6Fwjikw Comment: [01/31/2017] stop n adop6Nbwib Note: Stop and Nssw9Zbuuj Note: given at stop and awmx3Cyrtm Note: 03-06 [facility] IPNAACW7Dluvi Note: given at stop and shop Medications Advair Diskus 500 mcg-50 mcg inhalation powder 1, puffs, Inhalation, 2 times a day, rinse mouth and throat after use NAME BRAND MEDICALLY NECESSARYNO SUBSTITUTION, # 3 each, Refills 0, Tot. Refills 0, Maintenance, 08/28/21 11:41:00 EDT, Powder, Route to Pharmacy Electronically, [id number]... Start Date: 08/28/21 Stop Date: 11/26/21 Status: OrderedAdvair Diskus 500 mcg-50 mcg inhalation [...] 10/08/2110:51:00 EDT, Aerosol, Route to Pharmacy Electronically, [id number], [facility], 162, cm, 02/09/20 16:08:00 EST... 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 Social History Social History Type Response Smoking Status Current every day smoker entered on: 09/14/17 Sex Female
--- OUTSIDE RECORDS SUMMARY | 2022-01-04 18:23 | XMS_ITS | Continuity of Care Document ---
:1940 Author Organization [facility] Address [address] [place] [address]- Care Team Providers Name Role Phone Sam Shipman MD Primary Care Physician Encounter [facility] Date(s): 11/01/20 - 12/01/20 [facility] [address] [place] [address]- Allergies, Adverse Reactions, Alerts Substance Reaction Severity [...] Dose Flu Vaccination given by Emma Garza [id number] History: stop and sgpd0Qkjypo Comment: [01/31/2017] stop n wyag9Xkcza Note: Stop and Xhgq2Xllmt Note: given at stop and jybj8Mdjty Note: 03-06 [facility] EHDCYDI5Izxjx Note: given at stop and shop Medications [...] 11:41:00 EST, Powder, Route to Pharmacy Electronically, [id number]... Start Date: 03/01/21 Stop Date: 08/28/21 Status: [...] 10/08/2110:51:00 EDT, Aerosol, Route to Pharmacy Electronically, [id number], [facility], 162, cm, 02/09/20 16:08:00 EST... Start Date: 10/08/20 Stop Date: 10/03/21 Status: OrderedSpiriva HandiHaler 18 mcg inhalation capsule 1 capsule = 18 mcg, Inhalation, Daily, # 30 capsule, 11 Refills, Maintenance, 02/09/20 16:51:00 EST,[facility], Partial fill upon patient request, 162, cm, 02/09/20 16:08:00 EST, Height Start Date: 02/09/20 Status: Orderedspironolactone 25 mg oral tablet 1, tablet, By Mouth, Daily, # 90 tablet, Refills 3, Tot. 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 Social History Social History Type Response Smoking Status Current every day smoker entered on: 09/14/17 Sex Female
--- OUTSIDE RECORDS SUMMARY | 2022-01-04 18:23 | XMS_ITS | Continuity of Care Document ---
:1940 Author Organization [facility] Address [address] [place] [address]- Care Team Providers Name Role Phone Kiet BATRES, Keturah Cedeño Primary Care Physician Encounter [facility] [place] Date(s): 04/22/21 - 05/22/21 [facility] [address] [address]- Attending Physician: Adenike Barber Admitting Physician: Adenike [...] Dose Flu Vaccination given by Emma Garza JO9Nbqmpjhp History: stop and kdff2Oyfekx Comment: [01/31/2017] stop n mvpm9Rinff Note: Stop and Qxjm8Yhkdy Note: given at stop and gdhs2Rlmhi Note: 03-06 [facility] EFYIRNP7Suilg Note: given at stop and shop Medications Advair Diskus 500 mcg-50 mcg inhalation powder 1, puffs, Inhalation, 2 times a day, rinse mouth and throat after use NAME BRAND MEDICALLY NECESSARYNO SUBSTITUTION, # 3 each, Refills 0, Tot. Refills 0, Maintenance, 08/28/21 11:41:00 EDT, Powder, Route to Pharmacy Electronically, [id number]... Start Date: 08/28/21 Stop Date: 11/26/21 Status: [...] 12/07/20 11:19:00 EDT, Route to Pharmacy Electronically, [facility], 162, cm, 11/04/20 14:18:00EDT, Height [...] 10/08/2110:51:00 EDT, Aerosol, Route to Pharmacy Electronically, [id number], [facility], 162, cm, 02/09/20 16:08:00 EST... 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 Social History Social History Type Response Smoking Status Current every day smoker entered on: 09/14/17 Sex Female
--- OUTSIDE RECORDS SUMMARY | 2022-01-04 18:23 | XMS_ITS | Continuity of Care Document ---
:1940 Author Organization [facility] Address [address] [place] [address]- Care Team Providers Name Role Phone Sam Shipman MD Primary Care Physician [place] [facility] [place] 10/08/19 [facility] [address] [place] [address]- [facility] Attending Physician: Adenike Barber Admitting Physician: AdmAdenike love Referring Physician: AdmtrAdenike Allergies, Adverse Reactions, Alerts [...] (Td) [birth year]26[birth year] [address] History: stop and idsv3Prtqdi Comment: [01/31/2017] stop n ceca0Dtpsm Note: Stop and Xbpz2Dtskw Note: given at stop and luky8Vwiha Note: 03-06 [facility] EEAEVYN4Obhuw Note: given at stop and shop Medications Advair Diskus 500 mcg-50 mcg inhalation powder 1, puffs, Inhalation, 2 times a day, rinse mouth and throat after use NAME BRAND MEDICALLY NECESSARYNO SUBSTITUTION, # 3 each, Refills 1, Tot. Refills 1, Maintenance, 03/06/20 11:41:00 EST, Powder, Route to Pharmacy Electronically, [id number]... Start Date: 03/06/20 Stop Date: 09/02/20 Status: OrderedAdvair Diskus 500 mcg-50 mcg inhalation powder 1, puffs, Inhalation, 2 times a day, rinse mouth and throat after use NAME BRAND MEDICALLY NECESSARYNO SUBSTITUTION for 90 days, # 3 each, Refills 1, Tot. Refills 1, Hard Stop 03/06/20 11:41:00 EST, 09/08/19 11:41:00 EDT, Powder, Route to Pharmacy E... Start Date: 09/08/19 Stop Date: 03/06/20 Status: Orderedmirtazapine 15 mg oral tablet 1 [...] 12/18/18 11:02:55 EDT, Route to Pharmacy Electronically, [id number], [facility] Start Date: 12/18/18 Status: OrderedProAir HFA 90 mcg/inh inhalation aerosol with adapter 1, puffs, Inhalation, Every 6 hours, PRN, # 3 each, Refills 3, Tot. Refills 3, Maintenance, 09/18/1816:50:27 EDT, Aerosol, Route to Pharmacy Electronically, [id number], [facility] Start Date: 09/18/17 Stop Date: 09/13/18 Status: Orderedspironolactone 25 mg oral tablet 25 mg, 1, tablet, By Mouth, Daily, # 90 tablet, Refills 3, Tot. Refills 3, Maintenance, 09/08/19 10:26:00 EDT, Route to Pharmacy Electronically, [facility], 162, cm, 04/01/19 10:25:00 EST, Height Start Date: 09/08/19 Status: OrderedSynthroid 0.088 mg oral tablet 1 tablet = 0.088 mg, By Mouth, Daily, # 90 tablet, 3 Refills, Maintenance, 09/08/19 10:26:00 EDT, Tablet, 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 Procedures Procedure Date Related Diagnosis Body Site Status BMD 2012, osteoporosis Compl eted Social History Social History Type Response Smoking Status Current every day smoker entered on: 09/14/17 Sex Female
--- OUTSIDE RECORDS SUMMARY | 2022-01-04 18:23 | XMS_ITS | Continuity of Care Document ---
:1940 Author Organization [facility] Address [address] [address]- Care Team Providers Name Role Phone Sam Shipman MD Primary Care Physician [place] [facility] [place] 04[place]01/19 - 04/08/19 [facility] [address] [place] [address]- [place] Attending Physician: Anita Bhatti Admitting Physician: Anita [...] (Td) 07[birth year] [address] 1Location History: stop and xonu7Bsaxks Comment: [01/31/2017] stop n lizk7Srcxe Note: Stop and Pjbb6Honzj Note: given at stop and phhx8Hrybb Note: 12-12 [facility] ZKMJXVD0Wtsdc Note: given at stop and shop Medications Advair Diskus 500 mcg-50 mcg inhalation powder 1, puffs, Inhalation, 2 times a day, rinse mouth and throat after use NAME BRAND MEDICALLY NECESSARYNO SUBSTITUTION, # 180 each, Refills 3, Tot. Refills 3, Maintenance, 09/13/18 11:41:31 EDT, Powder, Route to Pharmacy Electronically, [id number]... Start Date: 09/13/18 Stop Date: 09/08/19 Status: OrderedNorvasc 2.5 mg oral tablet 2.5 mg, 1, tablet, By Mouth, Daily, # 90 tablet, Refills 3, Tot. Refills 3, Maintenance, 12/18/18 11:02:55 EDT, Route to Pharmacy Electronically, [id number], [facility] Start Date: 12/18/18 Status: OrderedProAir HFA 90 mcg/inh inhalation aerosol with adapter 1, puffs, Inhalation, Every 6 hours, PRN, # 3 each, Refills 3, Tot. Refills 3, Maintenance, 09/18/1816:50:27 EDT, Aerosol, Route to Pharmacy Electronically, [id number], [facility] Start Date: 09/18/17 Stop Date: 09/13/18 Status: Orderedspironolactone 25 mg oral tablet 25 mg, 1, tablet, By Mouth, Daily, # 90 tablet, Refills 3, Tot. 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 Vital Signs Most recent to oldest [Reference Range]: 1 Height 162 cm (04/01/19 10:25 AM) Weight 57.8 kg (04/01/19 10:25 AM) Oxygen Saturation [94-100 %] 94 % (04/01/19 10:25 AM) Pulse Rate [55-90 bpm] 62 bpm (04/01/19 10:25 AM) Body Mass Index [18.5-24.99] 22.02 (04/01/19 10:25 AM) Blood Pressure [90-138/55-84 mm Hg] 112/60 mm Hg (04/01/19 10:25 AM) Mode of Delivery (Oxygen) Room air (04/01/19 10:25 AM) Blood pressure sites Arm, left (04/01/19 10:25 AM) Weight Obtained Via Standing scale (04/01/19 10:25 AM) Social History Social History Type Response Smoking Status Current every day smoker entered on: 09/14/17 Sex Female
--- OUTSIDE RECORDS SUMMARY | 2022-01-04 18:23 | XMS_ITS | Continuity of Care Document ---
:1940 Author Organization [facility] Address [address] [place] [address]- Care Team Providers Name Role Phone Umberto MCGINNIS, Sam Sam Primary Care Physician [facility]counter [facility] Date(s): 01/25/21 - 02/24/21 [facility] [address] [place] [address]- Attending Physician: Adenike Barber Admitting Physician: Adenike [...] Dose Flu Vaccination given by Emma Garza [id number] History: stop and uhgw5Iqakpg Comment: [01/31/2017] stop n noey7Wxmmc Note: Stop and Emmc0Mdmpv Note: given at stop and iddg9Todqs Note: 03-06 [facility] UXFZEKA4Tlimm Note: given at stop and shop Medications [...] 11:41:00 EST, Powder, Route to Pharmacy Electronically, [id number]... Start Date: 03/01/21 Stop Date: 08/28/21 Status: [...] 12/07/20 11:19:00 EDT, Route to Pharmacy Electronically, [facility], 162, cm, 11/04/20 14:18:00EDT, Height [...] 10/08/2110:51:00 EDT, Aerosol, Route to Pharmacy Electronically, [id number], [facility], 162, cm, 02/09/20 16:08:00 EST... [...] 10/08/20 16:11:00 EDT, Route to Pharmacy Electronically, [facility], 162, cm, 02/09/20 [...] drinks/day(Confirmed) Daily alcohol consumption(Confirmed) Active Old inferior [place] [...]
--- OUTSIDE RECORDS SUMMARY | 2022-01-04 18:23 | XMS_ITS | Continuity of Care Document ---
:1940 Author Organization [facility] Address [address] [address]- Care Team Providers Name Role Phone Sam Shipman MD Primary Care Physician Encounter [facility] Date(s): 02/27/20 - 03/28/20 [facility] [address] [address]- Attending Physician: Adenike Barber Admitting Physician: AdmtrAdenike Referring Physician: [id number] Allergies, Adverse Reactions, Alerts Substance Reaction Severity [...] Dose Flu Vaccination given by Emma Garza [id number] History: stop and dorh9Tnjefi Comment: [01/31/2017] stop n dgti1Rlbfu Note: Stop and Fqkr2Avbjg Note: given at stop and gfnz7Pwhrr Note: 12- [facility] CVHRUEQ9Tfoaz Note: given at [facility] and shop Medications Advair Diskus 500 mcg-50 mcg inhalation powder 1, puffs, Inhalation, 2 times a day, rinse mouth and throat after use NAME BRAND MEDICALLY NECESSARYNO SUBSTITUTION, # 3 each, Refills 1, Tot. Refills 1, Maintenance, 09/02/20 11:41:00 EDT, Powder, Route to Pharmacy Electronically, [id number]... Start Date: 09/02/20 Stop Date: 03/01/21 Status: [...] 11:51:00 EDT, Aerosol, Route to Pharmacy Electronically, [id number], [facility]... Start Date: 10/14/19 Stop Date: 10/08/20 Status: OrderedProAir HFA 90 mcg/inh inhalation aerosol with adapter 1, puffs, Inhalation, Every 6 hours, PRN, # 3 each, Refills 3, Tot. Refills 3, Maintenance, 10/08/2110:51:00 EDT, Aerosol, Route to Pharmacy Electronically, [id number], [facility], 162, cm, 02/09/20 16:08:00 EST... Start Date: 10/08/20 Stop Date: 10/03/21 Status: OrderedSpiriva HandiHaler 18 mcg inhalation capsule 1 capsule = 18 mcg, Inhalation, Daily, # 30 capsule, 11 Refills, Maintenance, 02/09/20 16:51:00 EST,[facility], Partial fill upon patient request, 162, cm, 02/09/20 16:08:00 EST, Height Start Date: 02/09/20 Status: Orderedspironolactone 25 mg oral tablet 25 mg, 1, tablet, By Mouth, Daily, # 90 tablet, Refills 3, Tot. Refills 3, Maintenance, 09/08/19 10:26:00 EDT, Route to Pharmacy Electronically, [facility], 162, cm, 04/01/19 10:25:00 EST, Height Start Date: 09/08/19 Status: OrderedSynthroid 0.088 mg oral tablet 1 tablet = 0.088 mg, By Mouth, Daily, # 90 tablet, 3 Refills, Maintenance, 09/08/19 10:26:00 EDT, Tablet, [facility], 162, cm, 04/01/19 10:25:00 EST, [...]
--- OUTSIDE RECORDS SUMMARY | 2022-01-04 18:23 | XMS_ITS | Continuity of Care Document ---
:1940 Author Organization [facility] Address [address] [place] [address]- Care Team Providers Name Role Phone Kary MCGINNIS, Vance Ny Primary Care Physician [facility]counter [facility] Date(s): 06/02/21 - 07/02/21 [facility] [address] [place] [address]- Allergies, Adverse Reactions, Alerts Substance Reaction Severity [...] Dose Flu Vaccination given by Emma Garza [id number] History: stop and vduz4Vkatbk Comment: [01/31/2017] stop n gqyj1Twirg Note: Stop and Zzoy9Eqsss Note: given at stop and uqcf8Oojlq Note: 03-06 [facility] FSXQFNV1Pgpjq Note: given at stop and shop Medications [...] 10/08/2110:51:00 EDT, Aerosol, Route to Pharmacy Electronically, [id number], [facility], 162, cm, 02/09/20 16:08:00 EST... 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 Social History Social History Type Response Smoking Status Current every day smoker entered on: 09/14/17 Sex Female
--- OUTSIDE RECORDS SUMMARY | 2022-01-04 18:23 | XMS_ITS | Continuity of Care Document ---
:1940 Author Organization [facility] Address [address] [address]- Care Team Providers Name Role Phone Kary MCGINNIS, Vance Ny Primary Care Physician Encounter [facility] Date(s): 06/02/21 - 07/02/21 [facility] [address] [address]- Allergies, Adverse Reactions, Alerts Substance Reaction Severity [...] Dose Flu Vaccination given by Emma Garza [id number] History: stop and zuse1Npdydn Comment: [01/31/2017] stop n wtdq8Hffir Note: Stop and Jmsg8Qgkfy Note: given at stop and uvoj9Zfgni Note: 03-06 [facility] [id number] Note: given at stop and shop Medications [...] 10/08/2110:51:00 EDT, Aerosol, Route to Pharmacy Electronically, [id number], [facility], 162, cm, 02/09/20 16:08:00 EST... 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 Social History Social History Type Response Smoking Status Current every day smoker entered on: 09/14/17 Sex Female
--- OUTSIDE RECORDS SUMMARY | 2022-01-04 18:23 | XMS_ITS | Continuity of Care Document ---
:1940 Author Organization [facility] Address [address] [place] [address]- Care Team Providers Name Role Phone Sam Shipman MD Primary Care Physician Encounter [facility] Date(s): 10/14/19 - 11/13/19 [facility] [address] [place] [address]- [facility] Allergies, Adverse Reactions, Alerts Substance Reaction Severity [...] (Td) 07/26/93 Given 1Location History: stop and rglf0Tbrdiq Comment: [01/31/2017] stop n wali1Tlsqp Note: Stop and Sfyi1Nppvj Note: given at stop and ychw6Nvpee Note: 03-06 [facility] ZVJYDDO1Xyyqw Note: given at stop and shop Medications Advair Diskus 500 mcg-50 mcg inhalation powder 1, puffs, Inhalation, 2 times a day, rinse mouth and throat after use NAME BRAND MEDICALLY NECESSARYNO SUBSTITUTION, # 3 each, Refills 1, Tot. Refills 1, Maintenance, 03/06/20 11:41:00 EST, Powder, Route to Pharmacy Electronically, [id number]... Start Date: 03/06/20 Stop Date: 09/02/20 Status: [...] 12/18/18 11:02:55 EDT, Route to Pharmacy Electronically, [id number], [facility] Start Date: 12/18/18 Status: OrderedProAir HFA 90 mcg/inh inhalation aerosol with adapter 1, puffs, Inhalation, Every 6 hours, PRN, # 3 each, Refills 3, Tot. Refills 3, Maintenance, 10/13/2010:51:00 EDT, Aerosol, Route to Pharmacy Electronically, [id number], [facility], 162, cm, 04/01/19 10:25:00 EST... Start Date: 10/14/19 Stop Date: 10/08/20 Status: Orderedspironolactone 25 mg oral tablet 25 mg, 1, tablet, By Mouth, Daily, # 90 tablet, Refills 3, Tot. 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 Social History Social History Type Response Smoking Status Current every day smoker entered on: 09/14/17 Sex Female
--- OUTSIDE RECORDS SUMMARY | 2022-01-04 18:23 | XMS_ITS | Continuity of Care Document ---
:1940 Author Organization [facility] Address [address] [place] [address]- Care Team Providers Name Role Phone Sam Shipman MD Primary Care Physician Encounter [facility] Date(s): 09/08/19 - 09/15/19 [facility] [address] [place] [address] [facility] Encounter Diagnosis Hypothyroidism (Discharge Diagnosis) - 09/08/19 Chronic insomnia (Discharge Diagnosis) - 09/08/19 Hypertension (Discharge Diagnosis) - 09/08/19 Attending Physician: Sam Shipman MD Allergies, Adverse Reactions, [...] (Td) 07/26/93 Given 1Location History: stop and cfku4Nhptrj Comment: [01/31/2017] stop n vhvn8Ckauu Note: Stop and Hvch8Vrimu Note: given at stop and wlbu2Rtwhp Note: 03-06 [facility] STIILVA3Hngyt Note: given at stop and shop Medications Advair Diskus 500 mcg-50 mcg inhalation powder 1, puffs, Inhalation, 2 times a day, rinse mouth and throat after use NAME BRAND MEDICALLY NECESSARYNO SUBSTITUTION, # 3 each, Refills 1, Tot. Refills 1, Maintenance, 03/06/20 11:41:00 EST, Powder, Route to Pharmacy Electronically, [id number]... Start Date: 03/06/20 Stop Date: 09/02/20 Status: [...] 12/18/18 11:02:55 EDT, Route to Pharmacy Electronically, [id number], [facility] Start Date: 12/18/18 Status: OrderedProAir HFA 90 mcg/inh inhalation aerosol with adapter 1, puffs, Inhalation, Every 6 hours, PRN, # 3 each, Refills 3, Tot. Refills 3, Maintenance, 09/18/1816:50:27 EDT, Aerosol, Route to Pharmacy Electronically, [id number], [facility] Start Date: 09/18/17 Stop Date: 09/13/18 Status: Orderedspironolactone 25 mg oral tablet 25 mg, 1, tablet, By Mouth, Daily, # 90 tablet, Refills 3, Tot. 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 Diagnosis Diagnosis Type Effective Dates Health Clinical Infor mant Status Service Hypothyroidism Discharge 09/08/19 Diagnosis Chronic insomnia Discharge 09/08/19 Diagnosis Hypertension Discharge 09/08/19 Diagnosis Social History Social History Type Response Smoking Status Current every day smoker entered on: 09/14/17 Sex Female
--- OUTSIDE RECORDS SUMMARY | 2022-01-04 18:23 | XMS_ITS | Continuity of Care Document ---
:1940 Author Organization [facility] Address [address] [place] [address]- Care Team Providers Name Role Phone Kary MCGINNIS, Vance Ny Primary Care Physician En[place] [facility] Date(s): 09/16/21 - 10/16/21 [facility] Adult [address] [place] [address]- Attending Physician: Adenike Barber Admitting Physician: AdmAdenike love Referring Physician: AdmtrAdenike Allergies, Adverse Reactions, Alerts Substance Reaction Severity Status thiazide diuretics hypokalemia Active angiotensin converting enzyme inhibitors angioedema Active Diltiazem Hydrochloride Novaplus Active Celexa rash Active Immunizations Given and Recorded Vaccine Date Status Refusal Reason SARS-CoV-2 mRNA (gjbqtkz-xqlx-edbpw) vax 07/06/21 Recorde d influenza virus vaccine, [...] Dose Flu Vaccination given by Emma Garza NP2Location History: stop and qpho7Dkmcyb Comment: [01/31/2017] stop n gjqj3Cfyft Note: Stop and Cmmt5Pkmcz Note: given at stop and sjaz1Zfnkv Note: 03-06 [facility] SQNFUQX5Aubfs Note: given at stop and shop Medications [...] a schedule II opioid drug., 162, cm, 2... Start Date: 08/09/21 Status: Orderedmirtazapine 15 mg [...] 11:51:00 EDT, Aerosol, Route to Pharmacy Electronically, [id number], [facility], 162, cm, 08/19/21 8:00:00 ED... [...] pancreas(Confirmed) Daily alcohol consumption(Confirmed) Active Old inferior [place] on ECG without known Active CAD, possibly [...]
--- OUTSIDE RECORDS SUMMARY | 2022-01-04 18:23 | XMS_ITS | Continuity of Care Document ---
:1940 Author Organization [facility] Address [address] [address]- Care Team Providers Name Role Phone Sam Shipman MD Primary Care Physician Encounter [facility] Date(s): 01/20/19 - 04/09/19 [facility] [address] [place] [address] [place] Attending Physician: Anita Bhatti Admitting Physician: [...] (Td) 07/26/93 Given 1Location History: stop and jmcp7Ymlvtx Comment: [01/31/2017] stop n recl8Oyyjl Note: Stop and Cgwe7Vxdyu Note: given at stop and uwxj9Gdtju Note: 12-12 [facility] RCAVSMY4Zaqoo Note: given at stop and shop Medications Advair Diskus 500 mcg-50 mcg inhalation powder 1, puffs, Inhalation, 2 times a day, rinse mouth and throat after use NAME BRAND MEDICALLY NECESSARYNO SUBSTITUTION, # 180 each, Refills 3, Tot. Refills 3, Maintenance, 09/13/18 11:41:31 EDT, Powder, Route to Pharmacy Electronically, [id number]... Start Date: 09/13/18 Stop Date: 09/08/19 Status: OrderedNorvasc 2.5 mg oral tablet 2.5 mg, 1, tablet, By Mouth, Daily, # 90 tablet, Refills 3, Tot. Refills 3, Maintenance, 12/18/18 11:02:55 EDT, Route to Pharmacy Electronically, [id number], [facility] Start Date: 12/18/18 Status: OrderedProAir HFA 90 mcg/inh inhalation aerosol with adapter 1, puffs, Inhalation, Every 6 hours, PRN, # 3 each, Refills 3, Tot. Refills 3, Maintenance, 09/18/1816:50:27 EDT, Aerosol, Route to Pharmacy Electronically, [id number], [facility] Start Date: 09/18/17 Stop Date: 09/13/18 Status: Orderedspironolactone 25 mg oral tablet 25 mg, 1, tablet, By Mouth, Daily, # 90 tablet, Refills 3, Tot. 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 Social History Social History Type Response Smoking Status Current every day smoker entered on: 09/14/17 Sex Female
--- OUTSIDE RECORDS SUMMARY | 2022-01-04 18:23 | XMS_ITS | Continuity of Care Document ---
:1940 Author Organization [facility] Adult Address [address] [place] [address]- Care Team Providers Name Role Phone Sam Shipman MD Primary Care Physician [facility]counter [facility] Date(s): 12/07/20 - 01/06/21 [facility] [address] [place] [address]- Allergies, Adverse Reactions, Alerts Substance Reaction Severity [...] Dose Flu Vaccination given by Emma Garza [id number] History: stop and kach5Zsjvpx Comment: [01/31/2017] stop n piec0Hldgi Note: Stop and Rcgh9Erahz Note: given at stop and uifa5Vrqww Note: 03-06 [facility] VAEWVPV8Fgthi Note: given at stop and shop Medications [...] 11:41:00 EST, Powder, Route to Pharmacy Electronically, [id number]... Start Date: 03/01/21 Stop Date: 08/28/21 Status: [...] 10/08/2110:51:00 EDT, Aerosol, Route to Pharmacy Electronically, [id number], [facility], 162, cm, 02/09/20 16:08:00 EST... 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 Social History Social History Type Response Smoking Status Current every day smoker entered on: 09/14/17 Sex Female
--- OUTSIDE RECORDS SUMMARY | 2022-01-04 18:23 | XMS_ITS | Continuity of Care Document ---
:1940 Author Organization [facility] Adult Address [address] [place] [address]- Care Team Providers Name Role Phone Sam Shipman MD Primary Care Physician Encounter [facility] Date(s): 03/24/20 - 04/23/20 [facility] [address] [place] [address]- Allergies, Adverse Reactions, Alerts Substance Reaction Severity [...] Dose Flu Vaccination given by Emma Garza [id number] History: stop and tyoj2Nxprjt Comment: [01/31/2017] stop n jcdz7Wsbnh Note: Stop and Aiqb9Npqvc Note: given at stop and smlq1Uqvjk Note: 03-06 [facility] NOCRYHA8Puqjt Note: given at stop and shop Medications Advair Diskus 500 mcg-50 mcg inhalation powder 1, puffs, Inhalation, 2 times a day, rinse mouth and throat after use NAME BRAND MEDICALLY NECESSARYNO SUBSTITUTION, # 3 each, Refills 1, Tot. Refills 1, Maintenance, 09/02/20 11:41:00 EDT, Powder, Route to Pharmacy Electronically, [id number]... Start Date: 09/02/20 Stop Date: 03/01/21 Status: [...] 11:51:00 EDT, Aerosol, Route to Pharmacy Electronically, [id number], [facility]... Start Date: 10/14/19 Stop Date: 10/08/20 Status: OrderedProAir HFA 90 mcg/inh inhalation aerosol with adapter 1, puffs, Inhalation, Every 6 hours, PRN, # 3 each, Refills 3, Tot. Refills 3, Maintenance, 10/08/2110:51:00 EDT, Aerosol, Route to Pharmacy Electronically, [id number], [facility], 162, cm, 02/09/20 16:08:00 EST... Start Date: 10/08/20 Stop Date: 10/03/21 Status: OrderedSpiriva HandiHaler 18 mcg inhalation capsule 1 capsule = 18 mcg, Inhalation, Daily, # 30 capsule, 11 Refills, Maintenance, 02/09/20 16:51:00 EST,[facility], Partial fill upon patient request, 162, cm, 02/09/20 16:08:00 EST, Height Start Date: 02/09/20 Status: Orderedspironolactone 25 mg oral tablet 25 mg, 1, tablet, By Mouth, Daily, # 90 tablet, Refills 3, Tot. Refills 3, Maintenance, 09/08/19 10:26:00 EDT, Route to Pharmacy Electronically, [facility], 162, cm, 04/01/19 10:25:00 EST, Height Start Date: 09/08/19 Status: OrderedSynthroid 0.088 mg oral tablet 1 tablet = 0.088 mg, By Mouth, Daily, # 90 tablet, 3 Refills, Maintenance, 09/08/19 10:26:00 EDT, Tablet, [facility], 162, cm, 04/01/19 10:25:00 EST, [...]
--- OUTSIDE RECORDS SUMMARY | 2022-01-04 18:23 | XMS_ITS | Continuity of Care Document ---
:1940 Author Organization [facility] Adult Address [address] [place] [address]- Care Team Providers Name Role Phone Sam Shipman MD Primary Care Physician [facility]counter [facility] Date(s): 11/23/20 - 12/23/20 [facility] [address] [place] [address]- Allergies, Adverse Reactions, Alerts Substance Reaction Severity [...] Dose Flu Vaccination given by Emma Garza [id number] History: stop and pcdv4Okwzfg Comment: [01/31/2017] stop n awhh7Xgfzc Note: Stop and Honk2Llzeu Note: given at stop and htdx0Rbchu Note: 03-06 [facility] AHFBEDK0Qmjhn Note: given at stop and shop Medications [...] 11:41:00 EST, Powder, Route to Pharmacy Electronically, [id number]... Start Date: 03/01/21 Stop Date: 08/28/21 Status: [...] 10/08/2110:51:00 EDT, Aerosol, Route to Pharmacy Electronically, [id number], [facility], 162, cm, 02/09/20 16:08:00 EST... 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 Social History Social History Type Response Smoking Status Current every day smoker entered on: 09/14/17 Sex Female
--- OUTSIDE RECORDS SUMMARY | 2022-01-04 18:23 | XMS_ITS | Continuity of Care Document ---
:1940 Author Organization [facility] Adult Address [address] [place] [address]- Care Team Providers Name Role Phone Kary MCGINNIS, Vance Ny Primary Care Physician Encounter [facility] Date(s): 09/16/21 - 09/23/21 [facility] [address] [place] [address]- Attending Physician: Emma Garza NP Referring Physician: Vance Preston MD Allergies, Adverse Reactions, Alerts Substance Reaction Severity Status thiazide diuretics hypokalemia Active angiotensin converting enzyme inhibitors angioedema Active Celexa rash Active Diltiazem Hydrochloride Novaplus Active Immunizations Given and Recorded Vaccine Date Status Refusal Reason SARS-CoV-2 mRNA (rrhisls-nldm-mkmrg) vax 07/06/21 Recorde d influenza virus vaccine, [...] Dose Flu Vaccination given by Emma Garza [id number] History: stop and rtpv3Mgnesc Comment: [01/31/2017] stop n clco7Qqkgb Note: Stop and Pvmp7Pftmv Note: given at stop and cdbn1Vdiid Note: 03-06 [facility] XTFCEQI4Wphhq Note: given at stop and shop Medications [...] 11:51:00 EDT, Aerosol, Route to Pharmacy Electronically, [id number], [facility]... Start Date: 10/08/20 Stop Date: 10/03/21 Status: OrderedProAir HFA 90 mcg/inh inhalation aerosol with adapter 1, puffs, Inhalation, Every 6 hours, PRN, # 6.7 Gm, Refills 11, Tot. Refills 11, Maintenance, 10/03/21 11:51:00 EDT, Aerosol, Route to Pharmacy Electronically, [id number], [facility], 162, cm, 08/19/21 8:00:00 ED... 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 Vital Signs Most recent to oldest [Reference Range]: 1 Height 162 cm (09/16/21 12:58 PM) Weight 58.3 kg (09/16/21 12:58 PM) Oxygen Saturation [94-100 %] 99 % (09/16/21 12:58 PM) Pulse Rate [55-90 bpm] 62 bpm (09/16/21 12:58 PM) Body Mass Index [18.5-24.99] 22.21 (09/16/21 12:58 PM) Blood Pressure [90-138/55-84 mm Hg] 134/84 mm Hg (09/16/21 12:58 PM) Respiratory Rate [16-30 br/min] 22 br/min (09/16/21 12:58 PM) Liters per Minute 3 L/min (09/16/21 12:58 PM) Mode of Delivery (Oxygen) Nasal cannula (09/16/21 12:58 PM) Blood pressure sites Arm, right (09/16/21 12:58 PM) Weight Obtained Via Standing scale (09/16/21 12:58 PM) Social History Social History Type Response Smoking Status Current every day smoker entered on: 09/14/17 Sex Female
--- OUTSIDE RECORDS SUMMARY | 2022-01-04 18:23 | XMS_ITS | Continuity of Care Document ---
:1940 Author Organization [facility] Address [address] [place] [address]- Care Team Providers Name Role Phone Umberto MCGINNIS, Sam Sam Primary Care Physician Encounter [facility] Date(s): 04/28/20 - 05/28/[address] [address]- [place] Allergies, Adverse Reactions, Alerts Substance Reaction [...] Dose Flu Vaccination given by Emma Garza [id number] History: stop and cnfe8Uzkltx Comment: [01/31/2017] stop n lalt8Zopox Note: Stop and Tuuf4Ljptl Note: given at stop and mhkd4Wrzur Note: 03-06 [facility] [id number] Note: given at [facility] and shop Medications Advair Diskus 500 mcg-50 mcg inhalation powder 1, puffs, Inhalation, 2 times a day, rinse mouth and throat after use NAME BRAND MEDICALLY NECESSARYNO SUBSTITUTION, # 3 each, Refills 1, Tot. Refills 1, Maintenance, 09/02/20 11:41:00 EDT, Powder, Route to Pharmacy Electronically, [id number]... Start Date: 09/02/20 Stop Date: 03/01/21 Status: [...] 11:51:00 EDT, Aerosol, Route to Pharmacy Electronically, [id number], [facility]... Start Date: 10/14/19 Stop Date: 10/08/20 Status: OrderedProAir HFA 90 mcg/inh inhalation aerosol with adapter 1, puffs, Inhalation, Every 6 hours, PRN, # 3 each, Refills 3, Tot. Refills 3, Maintenance, 10/08/2110:51:00 EDT, Aerosol, Route to Pharmacy Electronically, [id number], [facility], 162, cm, [...] 09/08/19 10:26:00 EDT, Route to Pharmacy Electronically, [facility], 162, cm, 04/01/19 10:25:00 EST, [...]
--- OUTSIDE RECORDS SUMMARY | 2022-01-04 18:23 | XMS_ITS | Continuity of Care Document ---
:1940 Author Organization [facility] Address [address] [place] [address]- Care Team Providers Name Role Phone Umberto MCGINNIS, Sam Sam Primary Care Physician Encounter [facility] Date(s): 01/24/21 - 02/23/[address] [address]- [place] Allergies, Adverse Reactions, Alerts Substance Reaction [...] Dose Flu Vaccination given by Emma Garza [id number] History: stop and siqn5Kmmbjx Comment: [01/31/2017] stop n avsd7Smdvc Note: Stop and Ncpj1Ldymx Note: given at stop and rlfs5Nsvne Note: 03-06 [facility] NJKXEDC6Qlkoo Note: given at stop and shop Medications [...] 11:41:00 EST, Powder, Route to Pharmacy Electronically, [id number]... Start Date: 03/01/21 Stop Date: 08/28/21 Status: [...] 12/07/20 11:19:00 EDT, Route to Pharmacy Electronically, [facility], 162, cm, 11/04/20 14:18:00EDT, Height [...] 10/08/2110:51:00 EDT, Aerosol, Route to Pharmacy Electronically, [id number], [facility], 162, cm, 02/09/20 16:08:00 EST... 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 Social History Social History Type Response Smoking Status Current every day smoker entered on: 09/14/17 Sex Female
--- OUTSIDE RECORDS SUMMARY | 2022-01-04 18:23 | XMS_ITS | Continuity of Care Document ---
:1940 Author Organization [facility] Address [address] [address]- Care Team Providers Name Role Phone Sam Shipman MD Primary Care Physician Encounter [facility] Date(s): 12/19/19 - 01/18/20 [facility] [address] [place] [address]- [place] Allergies, Adverse Reactions, Alerts Substance Reaction Severity [...] (Td) 07/26/93 Given 1Location History: stop and kjyy3Uquudr Comment: [01/31/2017] stop n ktix6Xhkmk Note: Stop and Gzeo9Liczy Note: given at stop and sorq7Kcnte Note: 03-06 [facility] GVMQHEQ1Wocyx Note: given at stop and shop Medications Advair Diskus 500 mcg-50 mcg inhalation powder 1, puffs, Inhalation, 2 times a day, rinse mouth and throat after use NAME BRAND MEDICALLY NECESSARYNO SUBSTITUTION, # 3 each, Refills 1, Tot. Refills 1, Maintenance, 03/06/20 11:41:00 EST, Powder, Route to Pharmacy Electronically, [id number]... Start Date: 03/06/20 Stop Date: 09/02/20 Status: [...] 10:25:00 EST, Height Start Date: 09/08/19 Status: OrderedProAir HFA 90 mcg/inh inhalation aerosol with adapter 1, puffs, Inhalation, Every 6 hours, PRN, # 3 each, Refills 3, Tot. 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 Social History Social History Type Response Smoking Status Current every day smoker entered on: 09/14/17 Sex Female
--- OUTSIDE RECORDS SUMMARY | 2022-01-04 18:24 | XMS_ITS | Continuity of Care Document ---
:1940 Author Organization [facility] n Address [address] [address]- Care Team Providers Name Role Phone Sam Shipman MD Primary Care Physician [place] [facility] [place] 02[place]17[place] - 04/10/19 [facility] [address] [place] [address]- [place] Attending Physician: Anita Bhatti Admitting Physician: [...] (Td) 07/26/93 Given 1Location History: stop and fdvr4Lmdout Comment: [01/31/2017] stop n aspp2Hshja Note: Stop and Qxov1Ukqpd Note: given at stop and daex8Oexau Note: 12-12 [facility] JLCLUZZ5Vqayn Note: given at stop and shop Medications Advair Diskus 500 mcg-50 mcg inhalation powder 1, puffs, Inhalation, 2 times a day, rinse mouth and throat after use NAME BRAND MEDICALLY NECESSARYNO SUBSTITUTION, # 180 each, Refills 3, Tot. Refills 3, Maintenance, 09/13/18 11:41:31 EDT, Powder, Route to Pharmacy Electronically, [id number]... Start Date: 09/13/18 Stop Date: 09/08/19 Status: OrderedNorvasc 2.5 mg oral tablet 2.5 mg, 1, tablet, By Mouth, Daily, # 90 tablet, Refills 3, Tot. Refills 3, Maintenance, 12/18/18 11:02:55 EDT, Route to Pharmacy Electronically, [id number], [facility] Start Date: 12/18/18 Status: OrderedProAir HFA 90 mcg/inh inhalation aerosol with adapter 1, puffs, Inhalation, Every 6 hours, PRN, # 3 each, Refills 3, Tot. Refills 3, Maintenance, 09/18/1816:50:27 EDT, Aerosol, Route to Pharmacy Electronically, [id number], [facility] Start Date: 09/18/17 Stop Date: 09/13/18 Status: Orderedspironolactone 25 mg oral tablet 25 mg, 1, tablet, By Mouth, Daily, # 90 tablet, Refills 3, Tot. Refills 3, Maintenance, 08/15/18 13:52:58 EDT, Route to Pharmacy Electronically, [id number], [facility] Start Date: [...]
--- OUTSIDE RECORDS SUMMARY | 2022-01-04 18:24 | XMS_ITS | Continuity of Care Document ---
:1940 Author Organization [facility] Address [address] [place] [address]- Care Team Providers Name Role Phone Sam Shipman MD Primary Care Physician Encounter [facility] [place] Date(s): 11/04/20 - 12/04/20 [facility] [address] [place] [address]- Attending Physician: Admtr, Ar8 Admitting Physician: Admtr, Ar8 Referring Physician: Admtr, Ar8 Allergies, Adverse Reactions, Alerts Substance Reaction Severity [...] Dose Flu Vaccination given by Emma Garza [id number] History: stop and ugmn8Plotxg Comment: [01/31/2017] stop n dfje2Uasfs Note: Stop and Frqf2Xvqka Note: given at stop and uxzu5Hqecs Note: 03-06 [facility] RYEMHGK8Kjxnj Note: given at stop and shop Medications [...] 11:41:00 EST, Powder, Route to Pharmacy Electronically, [id number]... Start Date: 03/01/21 Stop Date: 08/28/21 Status: [...] 10/08/2110:51:00 EDT, Aerosol, Route to Pharmacy Electronically, [id number], [facility], 162, cm, 02/09/20 16:08:00 EST... Start Date: 10/08/20 Stop Date: 10/03/21 Status: OrderedSpiriva HandiHaler 18 mcg inhalation capsule 1 capsule = 18 mcg, Inhalation, Daily, # 30 capsule, 11 Refills, Maintenance, 02/09/20 16:51:00 EST,[facility], Partial fill upon patient request, 162, cm, 02/09/20 16:08:00 EST, Height Start Date: 02/09/20 Status: Orderedspironolactone 25 mg oral tablet 1, tablet, By Mouth, Daily, # 90 tablet, Refills 3, Tot. Refills 0, Maintenance, 10/08/20 16:11:00 EDT, Route to Pharmacy Electronically, [facility], 162, cm, 02/09/20 16:08:00 EST, Height Start Date: 10/08/20 Status: OrderedSynthroid 0.088 mg oral tablet 1 tablet = 0.088 mg, By Mouth, Daily, # 30 tablet, 0 Refills, Maintenance, 11/04/20 15:46:00 EDT, Tablet, [facility], 162, cm, 11/04/20 14:18:00 EDT, [...] drinks/day(Confirmed) Daily alcohol consumption(Confirmed) Active Old inferior [place] on ECG without known Active CAD, possibly [...]
--- OUTSIDE RECORDS SUMMARY | 2022-01-04 18:24 | XMS_ITS | Continuity of Care Document ---
:1940 Author Organization [facility] Address [address] [place] [address]- Care Team Providers Name Role Phone Sam Shipman MD Primary Care Physician Encounter [facility] [place] Date(s): 01/22/20 - 03/28/[address] [address]- Attending Physician: Anita Bhatti Admitting Physician: Anita Bhatti Referring Physician: Anita Bhatti Allergies, Adverse Reactions, Alerts Substance Reaction Severity [...] Dose Flu Vaccination given by Emma Garza [id number] History: stop and saul6Qdjlqw Comment: [01/31/2017] stop n bvec5Urbev Note: Stop and Pgna5Joygq Note: given at stop and lzzb0Obhds Note: 12- [facility] NLTADGN2Jqeoa Note: given at stop and shop Medications Advair Diskus 500 mcg-50 mcg inhalation powder 1, puffs, Inhalation, 2 times a day, rinse mouth and throat after use NAME BRAND MEDICALLY NECESSARYNO SUBSTITUTION, # 3 each, Refills 1, Tot. Refills 1, Maintenance, 09/02/20 11:41:00 EDT, Powder, Route to Pharmacy Electronically, [id number]... Start Date: 09/02/20 Stop Date: 03/01/21 Status: [...] 11:51:00 EDT, Aerosol, Route to Pharmacy Electronically, [id number], [facility] #... Start Date: 10/14/19 Stop Date: 10/08/20 Status: OrderedProAir HFA 90 mcg/inh inhalation aerosol with adapter 1, puffs, Inhalation, Every 6 hours, PRN, # 3 each, Refills 3, Tot. Refills 3, Maintenance, 10/08/2110:51:00 EDT, Aerosol, Route to Pharmacy Electronically, [id number], [facility], 162, cm, 02/09/20 16:08:00 EST... Start Date: 10/08/20 Stop Date: 10/03/21 Status: OrderedSpiriva HandiHaler 18 mcg inhalation capsule 1 capsule = 18 mcg, Inhalation, Daily, # 30 capsule, 11 Refills, Maintenance, 02/09/20 16:51:00 EST,[facility], Partial fill upon patient request, 162, cm, 02/09/20 16:08:00 EST, Height Start Date: 02/09/20 Status: Orderedspironolactone 25 mg oral tablet 25 mg, 1, tablet, By Mouth, Daily, # 90 tablet, Refills 3, Tot. 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 Social History Social History Type Response Smoking Status Current every day smoker entered on: 09/14/17 Sex Female
--- OUTSIDE RECORDS SUMMARY | 2022-01-04 18:24 | XMS_ITS | Continuity of Care Document ---
:1940 Author Organization [facility] Address [address] [address]- Care Team Providers Name Role Phone Kary MCGINNIS, Vance Ny Primary Care Physician Encounter [facility] [place] Date(s): 08/19/21 - 09/18/21 [facility] [address] [address]- Attending Physician: Adenike Barber Admitting Physician: Adenike Barber Referring Physician: AdmtrAdenike Allergies, Adverse Reactions, Alerts Substance Reaction Severity Status thiazide diuretics hypokalemia Active angiotensin converting enzyme inhibitors angioedema Active Diltiazem Hydrochloride Novaplus Active Celexa rash Active Immunizations Given and Recorded Vaccine Date Status Refusal Reason SARS-CoV-2 mRNA (aqwpibz-oqmv-aetwm) vax 07/06/21 Recorde d influenza virus vaccine, [...] Dose Flu Vaccination given by Emma Garza [id number] History: stop and qnls2Nmotrc Comment: [01/31/2017] stop n wzea9Jgqcj Note: Stop and Ggnb3Noxtw Note: given at stop and sbtp7Elikp Note: 03-06 [facility] LZPTAJP1Ffllf Note: given at stop and shop Medications [...] 11:51:00 EDT, Aerosol, Route to Pharmacy Electronically, [id number], [facility]... Start Date: 10/08/20 Stop Date: 10/03/21 Status: OrderedProAir HFA 90 mcg/inh inhalation aerosol with adapter 1, puffs, Inhalation, Every 6 hours, PRN, # 6.7 Gm, Refills 11, Tot. Refills 11, Maintenance, 10/03/21 11:51:00 EDT, Aerosol, Route to Pharmacy Electronically, [id number], [facility], 162, cm, [...]
--- OUTSIDE RECORDS SUMMARY | 2022-01-04 18:24 | XMS_ITS | Continuity of Care Document ---
:1940 Author Organization [facility] Address [address] [address]- Care Team Providers Name Role Phone Umberto MCGINNIS, Sam Sam Primary Care Physician Encounter [facility] Date(s): 03/02/21 - 04/01/21 [facility] [address] [address]- Allergies, Adverse Reactions, Alerts Substance Reaction Severity [...] Dose Flu Vaccination given by Emma Garza [id number] History: stop and osmv4Kkgfwb Comment: [01/31/2017] stop n bzoe3Ndtkj Note: Stop and Bmqe1Cuwxo Note: given at stop and rcqx0Azhzh Note: 03-06 [facility] BYLDNCT4Bmyow Note: given at stop and shop Medications Advair Diskus 500 mcg-50 mcg inhalation powder 1, puffs, Inhalation, 2 times a day, rinse mouth and throat after use NAME BRAND MEDICALLY NECESSARYNO SUBSTITUTION, # 3 each, Refills 0, Tot. Refills 0, Maintenance, 08/28/21 11:41:00 EDT, Powder, Route to Pharmacy Electronically, [id number]... Start Date: 08/28/21 Stop Date: 11/26/21 Status: [...] 12/07/20 11:19:00 EDT, Route to Pharmacy Electronically, [facility], 162, cm, 11/04/20 14:18:00EDT, Height [...] 10/08/2110:51:00 EDT, Aerosol, Route to Pharmacy Electronically, [id number], [facility], 162, cm, 02/09/20 16:08:00 EST... Start Date: 10/08/20 Stop Date: 10/03/21 Status: OrderedSpiriva HandiHaler 18 mcg inhalation capsule 1 capsule = 18 mcg, Inhalation, Daily, # 30 capsule, 2 Refills, Maintenance, 03/02/21 16:23:00 EST, [facility], Partial fill upon patient request, 162, cm, 11/04/20 14:18:00 EDT, Height Start Date: 03/02/21 Status: Orderedspironolactone 25 mg oral tablet 1, tablet, By Mouth, Daily, # 90 tablet, Refills 3, Tot. Refills 0, Maintenance, 10/08/20 16:11:00 EDT, Route to Pharmacy Electronically, [facility], 162, cm, 02/09/20 16:08:00 EST, [...] drinks/day(Confirmed) Daily alcohol consumption(Confirmed) Active Old inferior [place] on ECG without known Active CAD, 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 Social History Social History Type Response Smoking Status Current every day smoker entered on: 09/14/17 Sex Female
--- OUTSIDE RECORDS SUMMARY | 2022-01-04 18:24 | XMS_ITS | Continuity of Care Document ---
:1940 Author Organization [facility] Address [address] [place] [address]- Care Team Providers Name Role Phone Kary MCGINNIS, Vance Ny Primary Care Physician Encounter [facility] Date(s): 04/28/21 - 05/28/[address] [address]- [place] Allergies, Adverse Reactions, Alerts Substance Reaction [...] Dose Flu Vaccination given by Emma Garza [id number] History: stop and fuec5Xcaini Comment: [01/31/2017] stop n ydpx4Cpqef Note: Stop and Sigo8Vsjjx Note: given at stop and drya9Brvbn Note: 03-06 [facility] ISSKKJB7Orcbc Note: given at stop and shop Medications [...] 10/08/2110:51:00 EDT, Aerosol, Route to Pharmacy Electronically, [id number], [facility], 162, cm, 02/09/20 16:08:00 EST... Start Date: 10/08/20 Stop Date: 10/03/21 Status: OrderedSpiriva HandiHaler 18 mcg inhalation capsule 1 capsule = 18 mcg, Inhalation, Daily, # 30 capsule, 2 Refills, Maintenance, 03/02/21 16:23:00 EST, [facility], Partial fill upon patient request, 162, cm, 11/04/20 14:18:00 EDT, Height Start Date: 03/02/21 Status: Orderedspironolactone 25 mg oral tablet 1, tablet, By Mouth, Daily, # 90 tablet, Refills 3, Tot. Refills 0, Maintenance, 10/08/20 16:11:00 EDT, Route to Pharmacy Electronically, [facility], 162, cm, 02/09/20 16:08:00 EST, Height Start Date: 10/08/20 Status: OrderedSynthroid 0.088 mg oral tablet 1 tablet = 0.088 mg, By Mouth, Daily, # 30 tablet, 5 Refills, Maintenance, 12/06/20 9:00:00 EDT, Tablet, [facility], 162, cm, 11/04/20 14:18:00 EDT, [...]
--- OUTSIDE RECORDS SUMMARY | 2022-01-04 18:24 | XMS_ITS | Continuity of Care Document ---
:1940 Author Organization [facility] Address [address] [place] [address]- Care Team Providers Name Role Phone Sam Shipman MD Primary Care Physician [facility]counter [facility] Date(s): 10/14/19 - 11/13/19 [facility] [address] [place] [address]- [facility] Allergies, Adverse Reactions, Alerts Substance Reaction [...] (Td) 07/26/93 Given 1Location History: stop and ufgd5Tupono Comment: [01/31/2017] stop n ihvk0Fkkth Note: Stop and Ards1Zxoit Note: given at stop and bcna3Kwjvg Note: 03-06 [facility] QNWEFEP6Qlpmv Note: given at stop and shop Medications Advair Diskus 500 mcg-50 mcg inhalation powder 1, puffs, Inhalation, 2 times a day, rinse mouth and throat after use NAME BRAND MEDICALLY NECESSARYNO SUBSTITUTION, # 3 each, Refills 1, Tot. Refills 1, Maintenance, 03/06/20 11:41:00 EST, Powder, Route to Pharmacy Electronically, [id number]... Start Date: 03/06/20 Stop Date: 09/02/20 Status: [...] 12/18/18 11:02:55 EDT, Route to Pharmacy Electronically, [id number], [facility] Start Date: 12/18/18 Status: OrderedProAir HFA 90 mcg/inh inhalation aerosol with adapter 1, puffs, Inhalation, Every 6 hours, PRN, # 3 each, Refills 3, Tot. Refills 3, Maintenance, 10/13/2010:51:00 EDT, Aerosol, Route to Pharmacy Electronically, [id number], [facility], 162, cm, 04/01/19 10:25:00 EST... Start Date: 10/14/19 Stop Date: 10/08/20 Status: Orderedspironolactone 25 mg oral tablet 25 mg, 1, tablet, By Mouth, Daily, # 90 tablet, Refills 3, Tot. Refills 3, Maintenance, 09/08/19 10:26:00 EDT, Route to Pharmacy Electronically, [facility], 162, cm, 04/01/19 10:25:00 EST, [...]
--- OUTSIDE RECORDS SUMMARY | 2022-01-04 18:24 | XMS_ITS | Continuity of Care Document ---
:1940 Author Organization [facility] Address [address] [place] [address]- Care Team Providers Name Role Phone Kary MCGINNIS, Vance Ny Primary Care Physician Encounter [facility] Date(s): 09/01/21 - 09/08/21 [facility] [address] [place] [address]- Attending Physician: Bertha MCGINNIS, Chau Sharp Allergies, Adverse Reactions, Alerts Substance Reaction Severity Status thiazide diuretics hypokalemia Active angiotensin converting enzyme inhibitors angioedema Active Celexa rash Active Diltiazem Hydrochloride Novaplus Active Immunizations Given and Recorded Vaccine Date Status Refusal Reason SARS-CoV-2 mRNA (xftuycl-doka-kmcqp) vax 07/06/21 Recorde d influenza virus vaccine, [...] Dose Flu Vaccination given by Emma Garza EO4Hvltbklz History: stop and pahq0Tllxil Comment: [01/31/2017] stop n arpd3Vavwk Note: Stop and Lelj2Gjvso Note: given at stop and kveg6Nnabv Note: - [facility] WWZIOYU4Otfwr Note: given at stop and shop Medications levothyroxine 75 mcg (0.075 mg) oral tablet 1 [...] 11:51:00 EDT, Aerosol, Route to Pharmacy Electronically, [id number], [facility] #... Start Date: 10/08/20 Stop Date: 10/03/21 Status: OrderedProAir HFA 90 mcg/inh inhalation aerosol with adapter 1, puffs, Inhalation, Every 6 hours, PRN, # 6.7 Gm, Refills 11, Tot. Refills 11, Maintenance, 10/03/21 11:51:00 EDT, Aerosol, Route to Pharmacy Electronically, [id number], [facility], 162, cm, 08/19/21 8:00:00 ED... [...] 3 Refills, Maintenance, 06/02/21 12:57:00 EST, Powder, [facility], Partial fill upon patient request [...] pancreas(Confirmed) Daily alcohol consumption(Confirmed) Active Old inferior [place] on ECG without known Active CAD, 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 Vital Signs Most recent to oldest [Reference Range]: 1 Height 162 cm (09/01/21 3:52 PM) Weight 57.2 kg (09/01/21 3:52 PM) Oxygen Saturation [94-100 %] 97 % (09/01/21 3:52 PM) Pulse Rate [55-90 bpm] 66 bpm (09/01/21 3:52 PM) Body Mass Index [18.5-24.99] 21.8 (09/01/21 3:52 PM) Blood Pressure [90-138/55-84 mm Hg] 113/70 mm Hg (09/01/21 3:52 PM) Temperature [96.8-100.4 DegF] 97.8 DegF (09/01/21 3:52 PM) Liters per Minute 2 L/min (09/01/21 3:52 PM) Mode of Delivery (Oxygen) Nasal cannula (09/01/21 3:52 PM) Blood pressure sites Arm, left (09/01/21 3:52 PM) Temperature Route Oral (09/01/21 3:52 PM) Weight Obtained Via Standing scale (09/01/21 3:52 PM) Social History Social History Type Response Smoking Status Current every day smoker entered on: 09/14/17 Sex Female
--- OUTSIDE RECORDS SUMMARY | 2022-01-04 18:24 | XMS_ITS | Continuity of Care Document ---
:1940 Author Organization [facility] Address [address] [address]- Care Team Providers Name Role Phone Kiet BATRES, Keturah Cedeño Primary Care Physician Encounter [facility] [place] Date(s): 03/11/21 - 05/22/21 [facility] [address] [address]- Attending Physician: Geovanni Alford II, MD Admitting Physician: Geovanni Alford II, MD Allergies, Adverse Reactions, Alerts Substance Reaction [...] Dose Flu Vaccination given by Emma Garza [id number] History: stop and zsne9Rsrdgt Comment: [01/31/2017] stop n ihxa7Ykpty Note: Stop and Ukeb0Jkkfb Note: given at stop and szzt8Nrjgs Note: 03-06 [facility] YEOUPJN4Vbper Note: given at [facility] and shop Medications Advair Diskus 500 mcg-50 mcg inhalation powder 1, puffs, Inhalation, 2 times a day, rinse mouth and throat after use NAME BRAND MEDICALLY NECESSARYNO SUBSTITUTION, # 3 each, Refills 0, Tot. Refills 0, Maintenance, 08/28/21 11:41:00 EDT, Powder, Route to Pharmacy Electronically, [id number]... Start Date: 08/28/21 Stop Date: 11/26/21 Status: [...] 12/07/20 11:19:00 EDT, Route to Pharmacy Electronically, [facility], 162, cm, 11/04/20 14:18:00EDT, Height [...] 10/08/2110:51:00 EDT, Aerosol, Route to Pharmacy Electronically, [id number], [facility], 162, cm, 02/09/20 16:08:00 EST... 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 Social History Social History Type Response Smoking Status Current every day smoker entered on: 09/14/17 Sex Female
--- OUTSIDE RECORDS SUMMARY | 2022-01-04 18:24 | XMS_ITS | Continuity of Care Document ---
:1940 Author Organization [facility] Address [address] [address]- Care Team Providers Name Role Phone Kary MCGINNIS, Vance Ny Primary Care Physician Encounter [facility] Date(s): 06/02/21 - 09/09/21 [facility] [address] [address]- Attending Physician: Geovanni Alford II, MD Admitting Physician: Geovanni Alford II, MD Allergies, Adverse Reactions, Alerts Substance Reaction Severity Status thiazide diuretics hypokalemia Active angiotensin converting enzyme inhibitors angioedema Active Diltiazem Hydrochloride Novaplus Active Celexa rash Active Immunizations Given and Recorded Vaccine Date Status Refusal Reason SARS-CoV-2 mRNA (wfqepjj-ydbq-uwtfl) vax 07/06/21 Recorde d influenza virus vaccine, [...] Dose Flu Vaccination given by Emma Garza [id number] History: stop and iicg9Clhxhd Comment: [01/31/2017] stop n erev0Mmcwc Note: Stop and Voiu0Cpbcn Note: given at stop and pwab6Pxeoc Note: 03-06 [facility] PORYNBS8Dgeos Note: given at stop and shop Medications [...] 11:51:00 EDT, Aerosol, Route to Pharmacy Electronically, [id number], [facility]... Start Date: 10/08/20 Stop Date: 10/03/21 Status: OrderedProAir HFA 90 mcg/inh inhalation aerosol with adapter 1, puffs, Inhalation, Every 6 hours, PRN, # 6.7 Gm, Refills 11, Tot. Refills 11, Maintenance, 10/03/21 11:51:00 EDT, Aerosol, Route to Pharmacy Electronically, [id number], [facility], 162, cm, 08/19/21 8:00:00 ED... [...] Maintenance, 06/02/21 12:57:00 EST, Powder, [facility], Partial fill upon patient request if the prescription is for a schedule II opioid drug... Start Date: 3/10/22 Status: Ordered Problem List Condition Effective Dates [...] pancreas(Confirmed) Daily alcohol consumption(Confirmed) Active Old inferior [place] [...]
--- OUTSIDE RECORDS SUMMARY | 2022-01-04 18:24 | XMS_ITS | Continuity of Care Document ---
:1940 Author Organization [facility] Address [address] [address]- Care Team Providers Name Role Phone Kary MCGINNIS, Vance Ny Primary Care Physician Encounter [facility] Date(s): 07/04/21 - 08/03/21 [facility] [address] [address]- Allergies, Adverse Reactions, Alerts Substance Reaction Severity [...] Dose Flu Vaccination given by Emma Garza [id number] History: stop and utyx0Ddabym Comment: [01/31/2017] stop n dgoz9Afwgp Note: Stop and Tweq8Vgqvf Note: given at stop and ctac3Lixeo Note: 03-06 [facility] DJZJMNW0Bezpu Note: given at stop and shop Medications levothyroxine 0.088 mg oral tablet See Instructions, TAKE [...] EDT, Route to Pharmacy Electronically, [facility], 162, cm, 11/04/20 14:18:00EDT, Height [...] 10/08/2110:51:00 EDT, Aerosol, Route to Pharmacy Electronically, [id number], [facility], 162, cm, 02/09/20 16:08:00 EST... Start Date: 10/08/20 Stop Date: 10/03/21 Status: OrderedSpiriva HandiHaler 18 mcg inhalation capsule 1 capsule = 18 mcg, Inhalation, Daily, # 30 capsule, 2 Refills, Maintenance, 07/04/21 15:21:00 EDT, [facility], Partial fill upon patient request, 162, cm, 05/23/21 15:21:00 EST, Height Start Date: 07/04/21 Status: Orderedspironolactone 25 mg oral tablet 1, tablet, By Mouth, Daily, # 90 tablet, Refills 3, Tot. Refills 0, Maintenance, 10/08/20 16:11:00 EDT, Route to Pharmacy Electronically, [facility], 162, cm, 02/09/20 16:08:00 EST, Height Start Date: 10/08/20 Status: OrderedWixela Inhub 500 mcg-50 mcg inhalation powder 1 inhalation, Inhalation, 2 times a day, rinse mouth and throat after use, # 3 each, 3 Refills, Maintenance, 06/02/21 12:57:00 EST, Powder, [facility], Partial fill upon patient request [...] pancreas(Confirmed) Daily alcohol consumption(Confirmed) Active Old inferior CT on ECG without known Active CAD, 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 Social History Social History Type Response Smoking Status Current every day smoker entered on: 09/14/17 Sex Female
--- OUTSIDE RECORDS SUMMARY | 2022-01-04 18:24 | XMS_ITS | Continuity of Care Document ---
:1940 Author Organization [facility] Address [address] [place] [address]- Care Team Providers Name Role Phone Sam Shipman MD Primary Care Physician Encounter [facility] Date(s): 06/19/19 - 08/07/[address] [address]- [facility] Attending Physician: Sam Shipman MD Admitting Physician: Sam Shipman MD Referring Physician: Sam Shipman MD Allergies, Adverse [...] (Td) 07/26/93 Given 1Location History: stop and zrvm6Muupkt Comment: [01/31/2017] stop n lazv1Qmwlg Note: Stop and Tmdg1Nnyut Note: given at stop and ykjt3Ofeex Note: - [facility] USSODKW2Ownqm Note: given at [facility] and shop Medications [...] 11:41:00 EDT, Powder, Route to Pharmacy Electronically, [id number]... Start Date: 09/08/19 Stop Date: 03/06/20 Status: OrderedNorvasc 2.5 mg oral tablet 2.5 mg, 1, tablet, By Mouth, Daily, # 90 tablet, Refills 3, Tot. Refills 3, Maintenance, 12/18/18 11:02:55 EDT, Route to Pharmacy Electronically, [id number], [facility] Start Date: 12/18/18 Status: OrderedProAir HFA 90 mcg/inh inhalation aerosol with adapter 1, puffs, Inhalation, Every 6 hours, PRN, # 3 each, Refills 3, Tot. Refills 3, Maintenance, 09/18/1816:50:27 EDT, Aerosol, Route to Pharmacy Electronically, [id number], [facility] Start Date: 09/18/17 Stop Date: 09/13/18 Status: Orderedspironolactone 25 mg oral tablet 25 mg, 1, tablet, By Mouth, Daily, # 90 tablet, Refills 3, Tot. Refills 3, Maintenance, 08/15/18 13:52:58 EDT, Route to Pharmacy Electronically, [id number], [facility] Start Date: 08/15/18 Status: OrderedSynthroid 0.088 mg oral tablet 1 tablet = 0.088 mg, By Mouth, Daily, # 90 tablet, 0 Refills, Maintenance, 07/28/19 15:56:00 EDT, Tablet, [facility], 162, cm, 04/01/19 10:25:00 EST, Height Start Date: 07/28/19 Status: Ordered Problem List Condition Effective Dates [...] drinks/day(Confirmed) Daily alcohol consumption(Confirmed) Active Old inferior CT [...]
--- OUTSIDE RECORDS SUMMARY | 2022-01-04 18:24 | XMS_ITS | Continuity of Care Document ---
:1940 Author Organization [facility] Address [address] [address]- Care Team Providers Name Role Phone Sam Shipman MD Primary Care Physician Encounter [facility] Date(s): 12/06/20 - 01/05/[address] [address]- [place] Allergies, Adverse Reactions, Alerts Substance Reaction [...] (oldterm) 04/13/06 Given Influenza Inactive (IM) (oldterm) 12/5/03 Given Pneumococcal Vaccine (oldterm) 12/21/06 Given tetanus-diphtheria toxoids (Td) 04/16/03 Given tetanus-diphtheria toxoids (Td) 07/26/93 Given 1Result Comment: High Dose Flu Vaccination given by Emma Garza [id number] History: stop and qkkw7Mnhyte Comment: [01/31/2017] stop n dheo1Cshes Note: Stop and Sysz5Trpnw Note: given at stop and oczr2Ohrwm Note: 03-06 [facility] [id number] Note: given at stop and shop Medications [...] 11:41:00 EST, Powder, Route to Pharmacy Electronically, [id number]... Start Date: 03/01/21 Stop Date: 08/28/21 Status: [...] 10/08/2110:51:00 EDT, Aerosol, Route to Pharmacy Electronically, [id number], [facility], 162, cm, [...] 10/08/20 16:11:00 EDT, Route to Pharmacy Electronically, [facility], 162, cm, 02/09/20 16:08:00 EST, [...]
--- OUTSIDE RECORDS SUMMARY | 2022-01-04 18:24 | XMS_ITS | Continuity of Care Document ---
:1940 Author Organization [facility] Address [address] [address]- Care Team Providers Name Role Phone Sam Shipman MD Primary Care Physician Encounter [facility] [place] Date(s): 03/11/19 - 03/21/19 [facility] [address] [address]- [place] Attending Physician: Adenike Barber Admitting Physician: Adenike [...] (Td) 07/26/93 Given 1Location History: stop and rhny8Gulghu Comment: [01/31/2017] stop n jelt7Zacdq Note: Stop and Hjgf8Xgfuu Note: given at stop and ofng2Hophn Note: 12- [facility] YQLLCNB1Cbmoh Note: given at stop and shop Medications Advair Diskus 500 mcg-50 mcg inhalation powder 1, puffs, Inhalation, 2 times a day, rinse mouth and throat after use NAME BRAND MEDICALLY NECESSARYNO SUBSTITUTION, # 180 each, Refills 3, Tot. Refills 3, Maintenance, 09/13/18 11:41:31 EDT, Powder, Route to Pharmacy Electronically, [id number]... Start Date: 09/13/18 Stop Date: 09/08/19 Status: Orderedclindamycin 300 mg oral capsule 0 Refills, Maintenance, 09/23/18 10:52:52 EDT Start Date: 09/23/18 Status: Orderedmirtazapine 15 mg oral tablet See Instructions, # 30 tablet, Refills 1 Tot. Refills 1, TAKE 1/2 TABLET BY MOUTH AT BEDTIME ONLY ASNEEDED.., [facility] Start Date: 01/21/19 Status: OrderedNasacort Allergy 24HR 55 mcg/inh nasal spray 2 sprays, Nares, Both, Daily, # 16.5 Gm, 5 Refills, Maintenance, 06/17/18 16:07:15 EDT, 2 sprays Nares, Both Daily Start Date: 06/17/18 Status: OrderedNorvasc 2.5 mg oral tablet 2.5 mg, 1, tablet, By Mouth, Daily, # 90 tablet, Refills 3, Tot. Refills 3, Maintenance, 12/18/18 11:02:55 EDT, Route to Pharmacy Electronically, [id number], [facility] Start Date: 12/18/18 Status: OrderedProAir HFA 90 mcg/inh inhalation aerosol with adapter 1, puffs, Inhalation, Every 6 hours, PRN, # 3 each, Refills 3, Tot. Refills 3, Maintenance, 09/18/1816:50:27 EDT, Aerosol, Route to Pharmacy Electronically, [id number], [facility] Start Date: 09/18/17 Stop Date: 09/13/18 Status: Orderedspironolactone 25 mg oral tablet 25 mg, 1, tablet, By Mouth, Daily, # 90 tablet, Refills 3, Tot. Refills 3, Maintenance, 08/15/18 13:52:58 EDT, Route to Pharmacy Electronically, [id number], [facility] Start Date: [...]
--- OUTSIDE RECORDS SUMMARY | 2022-01-04 18:24 | XMS_ITS | Continuity of Care Document ---
:1940 Author Organization [facility] Address [address] [place] [address]- Care Team Providers Name Role Phone Vance [place] MD Primary Care Physician Encounter [facility] Date(s): 10/25/21 - 11/24/21 [facility] [address] [place] [address]- Allergies, Adverse Reactions, Alerts Substance Reaction Severity Status thiazide diuretics hypokalemia Active angiotensin converting enzyme inhibitors angioedema Active Celexa rash Active Diltiazem Hydrochloride Novaplus Active Immunizations Given and Recorded Vaccine Date Status Refusal Reason SARS-CoV-2 mRNA (vaokhxc-cnzd-zcsfu) vax 07/06/21 Recorde d influenza virus vaccine, [...] Dose Flu Vaccination given by Emma Garza [id number] History: stop and nyok3Bfipgu Comment: [01/31/2017] stop n nohv6Kejwl Note: Stop and Iavw9Kauqd Note: given at stop and nwuj0Ksthl Note: 03-06 [facility] JDIRQGU9Pgxjq Note: given at stop and shop Medications bisoprolol 5 mg oral tablet 1 tablet = 5 mg, By Mouth, Daily, # 90 tablet, 3 Refills, Maintenance, 04/28/21 12:06:00 EST, Tablet, [facility], 162, cm, 11/04/20 14:18:00 EDT, Height Start Date: 04/28/21 Status: Orderedfamotidine 20 mg oral tablet 20 mg, 1, [...] 11:51:00 EDT, Aerosol, Route to Pharmacy Electronically, [id number], [facility], 162, cm, 08/19/21 8:00:00 ED... 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 Social History Social History Type Response Smoking Status Current every day smoker entered on: 09/14/17 Sex Female Care Team PersonnelName: Vacne [place] MD Address: [address] [place] [id number]
--- OUTSIDE RECORDS SUMMARY | 2022-01-04 18:24 | XMS_ITS | Continuity of Care Document ---
:1940 Author Organization [facility] Address [address] [place] [address]- Care Team Providers Name Role Phone Umberto MCGINNIS, Sam Sam Primary Care Physician Encounter [facility] [place] Date(s): 05/14/20 - 06/13/20 [facility] [address] [address]- Attending Physician: Adenike Barber Admitting Physician: Adenike [...] Dose Flu Vaccination given by Emma Garza [id number] History: stop and kbmy7Ulepmz Comment: [01/31/2017] stop n xqyv3Flcfw Note: Stop and Ucvl5Grnhg Note: given at stop and yksf6Jykdo Note: 03-06 [facility] GHJGFDJ6Bfqxc Note: given at stop and shop Medications Advair Diskus 500 mcg-50 mcg inhalation powder 1, puffs, Inhalation, 2 times a day, rinse mouth and throat after use NAME BRAND MEDICALLY NECESSARYNO SUBSTITUTION, # 3 each, Refills 1, Tot. Refills 1, Maintenance, 09/02/20 11:41:00 EDT, Powder, Route to Pharmacy Electronically, [id number]... Start Date: 09/02/20 Stop Date: 03/01/21 Status: [...] 11:51:00 EDT, Aerosol, Route to Pharmacy Electronically, [id number], [facility]... Start Date: 10/14/19 Stop Date: 10/08/20 Status: OrderedProAir HFA 90 mcg/inh inhalation aerosol with adapter 1, puffs, Inhalation, Every 6 hours, PRN, # 3 each, Refills 3, Tot. 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 Social History Social History Type Response Smoking Status Current every day smoker entered on: 09/14/17 Sex Female
--- OUTSIDE RECORDS SUMMARY | 2022-01-04 18:24 | XMS_ITS | Continuity of Care Document ---
:1940 Author Organization [facility] Address [address] [place] [address]- Care Team Providers Name Role Phone Kary MCGINNIS, Vance Ny Primary Care Physician Encounter [facility] Date(s): 06/03/21 - 07/03/21 [facility] [address] [place] [address]- Allergies, Adverse Reactions, Alerts Substance Reaction Severity [...] Dose Flu Vaccination given by Emma Garza [id number] History: stop and tequ8Xnraka Comment: [01/31/2017] stop n aqad2Jgdwh Note: Stop and Rezc7Aypyj Note: given at stop and swhd1Eisbh Note: 03-06 [facility] OWSLIDL7Arfli Note: given at stop and shop Medications [...] 10/08/2110:51:00 EDT, Aerosol, Route to Pharmacy Electronically, [id number], [facility], 162, cm, 02/09/20 16:08:00 EST... [...] 10/08/20 16:11:00 EDT, Route to Pharmacy Electronically, [facility], 162, cm, 02/09/20 16:08:00 EST, [...] pancreas(Confirmed) Daily alcohol consumption(Confirmed) Active Old inferior SD [...]
--- OUTSIDE RECORDS SUMMARY | 2022-01-04 18:24 | XMS_ITS | Continuity of Care Document ---
:1940 Author Organization [facility] Address [address] [place] [address]- Care Team Providers Name Role Phone Umberto MCGINNIS, Sam Sam Primary Care Physician Encounter [facility] Date(s): 01/23/20 - 01/30/20 [facility] [address] [place] [address]- Attending Physician: Not on Staff, Attending MD [...] Dose Flu Vaccination given by Emma Garza [id number] History: stop and bwmv4Xkuwed Comment: [01/31/2017] stop n dwnq7Gaouj Note: Stop and Yxrx0Zhycy Note: given at stop and hbtm1Vxuwd Note: 03-06 [facility] MWZRXGQ9Ehmmx Note: given at stop and shop Medications Advair Diskus 500 mcg-50 mcg inhalation powder 1, puffs, Inhalation, 2 times a day, rinse mouth and throat after use NAME BRAND MEDICALLY NECESSARYNO SUBSTITUTION, # 3 each, Refills 1, Tot. Refills 1, Maintenance, 03/06/20 11:41:00 EST, Powder, Route to Pharmacy Electronically, [id number]... Start Date: 03/06/20 Stop Date: 09/02/20 Status: [...] 10/13/2010:51:00 EDT, Aerosol, Route to Pharmacy Electronically, [id number], [facility], 162, cm, 04/01/19 10:25:00 EST... Start Date: 10/14/19 Stop Date: 10/08/20 Status: Orderedspironolactone 25 mg oral tablet 25 mg, 1, tablet, By Mouth, Daily, # 90 tablet, Refills 3, Tot. Refills 3, Maintenance, 09/08/19 10:26:00 EDT, Route to Pharmacy Electronically, [facility], 162, cm, 04/01/19 10:25:00 EST, Height Start Date: 09/08/19 Status: OrderedSynthroid 0.088 mg oral tablet 1 tablet = 0.088 mg, By Mouth, Daily, # 90 tablet, 3 Refills, Maintenance, 09/08/19 10:26:00 EDT, Tablet, [facility], 162, cm, 04/01/19 10:25:00 EST, [...] drinks/day(Confirmed) Daily alcohol consumption(Confirmed) Active Old inferior DC [...]
--- OUTSIDE RECORDS SUMMARY | 2022-01-04 18:24 | XMS_ITS | Continuity of Care Document ---
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 Start Date: 03/01/21 Stop Date: 08/28/21 Status: Orderedmirtazapine 15 mg oral tablet 1 tablet = 15 mg, By Mouth, Daily at bedtime, # 90 tablet, 3 Refills, Maintenance, 09/08/19 17:14:00EDT, Tablet, [facility], D/C RX 7.5, 162, cm, 01/07/20 10:25:00 EST, Height Start Date: 09/08/19 Status: [...] 10/08/2110:51:00 EDT, Aerosol, Route to Pharmacy Electronically, [id number], [facility], 162, cm, [...] EDT, Route to Pharmacy Electronically, [facility], 162, cm, 02/09/20 16:08:00 EST, Height Start Date: 10/08/20 Status: OrderedSynthroid 0.088 mg oral tablet 1 tablet = 0.088 mg, By Mouth, Daily, # 30 tablet, 0 Refills, Maintenance, 11/04/20 15:46:00 EDT, Tablet, [facility], [...] drinks/day(Confirmed) Daily alcohol consumption(Confirmed) Active Old inferior [place] on ECG without known Active CAD, 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 Diagnosis Diagnosis Type Effective Dates Health Clinical Infor mant Status Service Oxygen dependent Discharge 11/04/20 Diagnosis Chronic obstructive Discharge 11/04/20 pulmonary disease Diagnosis (COPD) Hypertension Discharge 11/04/20 Diagnosis Hypothyroidism Discharge 11/04/20 Diagnosis Necrotizing Discharge 11/04/20 granulomatous Diagnosis inflammation of lung - due to aspergillus Paroxysmal SVT Discharge 11/04/20 (supraventricular Diagnosis tachycardia) Vital Signs Most recent to oldest [Reference Range]: 1 Height 162 cm (11/04/20 2:18 PM) Weight 58.0 kg (11/04/20 2:18 PM) Body Mass Index [18.5-24.99] 22.1 (11/04/20 2:18 PM) Weight Obtained Via Standing scale (11/04/20 2:18 PM) Social History Social History Type Response Smoking Status Current every day smoker entered on: 09/14/17 Sex Female
--- OUTSIDE RECORDS SUMMARY | 2022-01-04 18:24 | XMS_ITS | Continuity of Care Document ---
:1940 Author Organization [facility] Address [address] [place] [id number]- Care Team Providers Name Role Phone Keturah Santa NP Primary Care Physician Encounter [facility] [place] Date(s): 05/13/21 - 05/20/[address] [address]- Attending Physician: Anita Bhatti Admitting Physician: Anita [...] Dose Flu Vaccination given by Emma Garza [id number] History: stop and [id number] Comment: [01/31/2017] stop n [id number] Note: Stop and [id number] Note: given at stop and [id number] Note: 03-06 [facility] [id number] Note: given at stop and shop Medications Advair Diskus 500 mcg-50 mcg inhalation powder 1, puffs, Inhalation, 2 times a day, rinse mouth and throat after use NAME BRAND MEDICALLY NECESSARYNO SUBSTITUTION, # 3 each, Refills 0, Tot. Refills 0, Maintenance, 08/28/21 11:41:00 EDT, Powder, Route to Pharmacy Electronically, [id number]... Start Date: 08/28/21 Stop Date: 11/26/21 Status: [...] 12/07/20 11:19:00 EDT, Route to Pharmacy Electronically, [facility], 162, cm, 11/04/20 14:18:00EDT, Height [...] 10/08/2110:51:00 EDT, Aerosol, Route to Pharmacy Electronically, [id number], [facility], 162, cm, 02/09/20 16:08:00 EST... 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 Social History Social History Type Response Smoking Status Current every day smoker entered on: 09/14/17 Sex Female
--- OUTSIDE RECORDS SUMMARY | 2022-01-04 18:24 | XMS_ITS | Continuity of Care Document ---
:1940 Author Organization [facility] Address [address] [place] [address]- Care Team Providers Name Role Phone Kary MCGINNIS, Vance Ny Primary Care Physician Encounter [facility] Date(s): 09/07/21 - 10/07/21 [facility] [address] [place] [address]- Allergies, Adverse Reactions, Alerts Substance Reaction Severity Status thiazide diuretics hypokalemia Active angiotensin converting enzyme inhibitors angioedema Active Celexa rash Active Diltiazem Hydrochloride Novaplus Active Immunizations Given and Recorded Vaccine Date Status Refusal Reason SARS-CoV-2 mRNA ([id number]) vax 07/06/21 Recorde d influenza virus vaccine, [...] Dose Flu Vaccination given by Emma Garza [id number] History: stop and [id number] Comment: [01/31/2017] stop n [id number] Note: Stop and Wife5Clulh Note: given at stop and [id number] Note: 12- [facility] [id number] Note: given at stop and shop Medications [...] 11:51:00 EDT, Aerosol, Route to Pharmacy Electronically, [id number], [facility], 162, cm, 08/19/21 8:00:00 ED... 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 Social History Social History Type Response Smoking Status Current every day smoker entered on: 09/14/17 Sex Female
== END 2022-01-04 20:24 | disposition home or self-care (01) ==
PROVIDERS: Emergency Provider Emergency Medicine; PCP Internal Medicine
DX: S01.01XA Laceration without foreign body of scalp, initial encounter (principal); F07.81 Postconcussional syndrome; R91.8 Other nonspecific abnormal finding of lung field; R51.9 Headache, unspecified; M54.2 Cervicalgia; M25.552 Pain in left hip; M25.551 Pain in right hip; M54.50 Low back pain, unspecified; R06.02 Shortness of breath; W01.0XXA Fall on same level from slipping, tripping and stumbling without subsequent striking against object, initial encounter; Y93.9 Activity, unspecified; Y92.9 Unspecified place or not applicable; Y99.9 Unspecified external cause status; Z79.899 Other long term (current) drug therapy
CPT/HCPCS: 70450; 71250; 72125; 72128; 72131; 73522; 90471; 90715; 99284